=== PATIENT | male | born 1935 | race Caucasian/White ===

== ENCOUNTER 2017-09-11 10:06 | Emergency (ER) | payer MEDICARE, OTHER ==
[2017-09-11 10:42] LABS: ADD MAN DIFF? NO
[2017-09-11 10:57] LABS: WHITE BLOOD COUNT 10.3 10^3/ul (4.8-10.8)
[2017-09-11 10:57] LABS: BASOPHIL # 0.1 10^3/ul (0.0-0.1); BASOPHILS % 0.5 % (0.0-2.0); EOSINOPHILS # 0.4 10^3/ul (0.0-0.5); EOSINOPHILS % 4.3 % (0.0-7.0); HEMATOCRIT 40.2 % (42.0-52.0); HEMOGLOBIN 13.4 g/dl (14.0-18.0); LYMPHOCYTES # 1.9 10^3/ul (0.8-2.9); LYMPHOCYTES % 18.1 % (15.0-51.0); MEAN CORPUSCULAR HEMOGLOBIN 30.3 pg (29.0-33.0); MEAN CORPUSCULAR HGB CONC 33.3 g/dl (32.0-37.0); MEAN PLATELET VOLUME 11.2 fl (7.4-10.4); MONOCYTE # 0.8 10^3/ul (0.3-0.9); MONOCYTES % 7.9 % (0.0-11.0); NEUTROPHIL # 7.1 10^3/ul (1.6-7.5); NEUTROPHILS % 68.9 % (39.0-77.0); PLATELET COUNT 205 10^3/UL (140-415); POSITIVE DIFF @See below; RED BLOOD COUNT 4.42 10^6/ul (4.70-6.10); RED CELL DISTRIBUTION WIDTH 14.2 % (11.5-14.5)
[2017-09-11 11:15] LABS: HEMOGLOBIN A1C 6.6 % (0-5.9)
[2017-09-11 11:38] LABS: AMMONIA < 9 umol/l (9-30)
[2017-09-11 11:59] LABS: ALANINE AMINOTRANSFERASE 27 IU/L (13-69); ALBUMIN 3.9 g/dl (3.3-4.9); ALBUMIN/GLOBULIN RATIO 1.08; ALKALINE PHOSPHATASE 128 IU/L (42-121); ANION GAP 15 (8-16); ASPARTATE AMINO TRANSFERASE 17 IU/L (15-46); BILIRUBIN,INDIRECT 0.2 mg/dl (0-1.1); BILIRUBIN,TOTAL 0.2 mg/dl (0.2-1.3); BLOOD UREA NITROGEN 50 mg/dl (7-20); CALCIUM 8.7 mg/dl (8.4-10.2); CARBON DIOXIDE 24 mmol/L (21-31); CHLORIDE 106 mmol/L (97-110); CREATININE 3.24 mg/dl (0.61-1.24); GLUCOSE 192 mg/dl (70-220); POTASSIUM 4.6 mmol/L (3.5-5.1); SODIUM 140 mmol/L (135-144); TOTAL PROTEIN 7.5 g/dl (6.1-8.1)
[2017-09-11] MEDS: ASPIRIN 300 MG SUPP PR (12:01)
[2017-09-11 12:07] LABS: ACETAMINOPHEN < 10.0 ug/ml (10.0-30.0); ETHANOL < 10.0 mg/dl; SALICYLATE < 1.0 mg/dl (5.0-30.0)
[2017-09-11 12:10] LABS: TROPONIN-I 0.014 ng/ml (0.00-0.12)
== END 2017-09-11 16:16 | disposition short-term general hospital (02) ==
LOC: E/R 10:06
DX: I63.512 Cerebral infarction due to unspecified occlusion or stenosis of left middle cerebral artery (principal); I69.322 Dysarthria following cerebral infarction; H51.8 Other specified disorders of binocular movement; I63.9 Cerebral infarction, unspecified; E11.22 Type 2 diabetes mellitus with diabetic chronic kidney disease; N18.9 Chronic kidney disease, unspecified; I25.10 Atherosclerotic heart disease of native coronary artery without angina pectoris; Z98.61 Coronary angioplasty status; Z79.4 Long term (current) use of insulin
CPT/HCPCS: 36415; 70450; 71045; 80053; 80306; 82140; 83036; 84484; 85025; 93005; 99285-25

== ENCOUNTER 2018-01-26 04:08 | Emergency (ER) | payer MEDICARE, OTHER ==
[2018-01-26 06:58] LABS: ADD MAN DIFF? NO
[2018-01-26 07:04] LABS: BASOPHIL # 0.1 10^3/ul (0.0-0.1); BASOPHILS % 0.7 % (0.0-2.0); EOSINOPHILS # 0.7 10^3/ul (0.0-0.5); EOSINOPHILS % 7.1 % (0.0-7.0); HEMOGLOBIN 11.7 g/dl (14.0-18.0); LYMPHOCYTES # 1.9 10^3/ul (0.8-2.9); LYMPHOCYTES % 20.5 % (15.0-51.0); MEAN CORPUSCULAR HEMOGLOBIN 30.8 pg (29.0-33.0); MEAN CORPUSCULAR HGB CONC 31.6 g/dl (32.0-37.0); MEAN CORPUSCULAR VOLUME 97.4 fl (82.0-101.0); MEAN PLATELET VOLUME 11.7 fl (7.4-10.4); MONOCYTE # 0.9 10^3/ul (0.3-0.9); MONOCYTES % 9.4 % (0.0-11.0); NEUTROPHIL # 5.7 10^3/ul (1.6-7.5); NEUTROPHILS % 62.1 % (39.0-77.0); PLATELET COUNT 215 10^3/UL (140-415)
[2018-01-26 07:04] LABS: WHITE BLOOD COUNT 9.2 10^3/ul (4.8-10.8)
[2018-01-26 07:08] LABS: ADD UMIC YES; UR ASCORBIC ACID NEGATIVE (NEGATIVE); UR BILIRUBIN (Dip) NEGATIVE (NEGATIVE); UR BLOOD (Dip) 1+ mg/dL (NEGATIVE); UR CLARITY CLEAR (CLEAR); UR COLOR YELLOW (YELLOW); UR GLUCOSE (Dip) 2+ mg/dL (NEGATIVE); UR KETONES (Dip) NEGATIVE (NEGATIVE); UR LEUKOCYTE ESTERASE (Dip) NEGATIVE Leu/ul (NEGATIVE); UR NITRITE (Dip) NEGATIVE (NEGATIVE); UR RBC 1 /HPF (0-5); UR SPECIFIC GRAVITY (Dip) 1.015 (1.003-1.030); UR TOTAL PROTEIN (Dip) 3+ mg/dl (NEGATIVE); UR UROBILINOGEN (Dip) NEGATIVE (NEGATIVE); UR WBC 1 /HPF (0-5)
[2018-01-26 07:29] LABS: ALANINE AMINOTRANSFERASE 19 IU/L (13-69); ALBUMIN 3.4 g/dl (3.3-4.9); ALBUMIN/GLOBULIN RATIO 0.89; ALKALINE PHOSPHATASE 115 IU/L (42-121); ANION GAP 15 (8-16); ASPARTATE AMINO TRANSFERASE 13 IU/L (15-46); BILIRUBIN,INDIRECT 0.3 mg/dl (0-1.1); BILIRUBIN,TOTAL 0.3 mg/dl (0.2-1.3); BLOOD UREA NITROGEN 47 mg/dl (7-20); CALCIUM 8.6 mg/dl (8.4-10.2); CARBON DIOXIDE 27 mmol/L (21-31); CHLORIDE 113 mmol/L (97-110); CREATININE 4.03 mg/dl (0.61-1.24); GLUCOSE 155 mg/dl (70-220); LIPASE 276 U/L (23-300); POTASSIUM 4.8 mmol/L (3.5-5.1); SODIUM 150 mmol/L (135-144); TOTAL PROTEIN 7.2 g/dl (6.1-8.1)
[2018-01-26 07:41] LABS: TROPONIN-I 0.083 ng/ml (0.000-0.120)
== END 2018-01-26 08:27 | disposition home or self-care (01) ==
LOC: E/R 04:08
DX: R10.13 Epigastric pain (principal); E11.22 Type 2 diabetes mellitus with diabetic chronic kidney disease; N18.9 Chronic kidney disease, unspecified; I25.10 Atherosclerotic heart disease of native coronary artery without angina pectoris; Z79.4 Long term (current) use of insulin; Z87.891 Personal history of nicotine dependence; Z95.1 Presence of aortocoronary bypass graft
CPT/HCPCS: 36415; 74176; 80053; 81001; 83690; 84484; 85025; 99285-25

== ENCOUNTER 2018-03-22 16:54 | Inpatient (IN) | payer MEDICARE, OTHER ==
[2018-03-22] MEDS: INSULIN GLARGINE [LANTus] (100 UNITS/ML) SYG SC (00:50)
[2018-03-22] MEDS ORDERED: ACETAMINOPHEN 325 MG TAB PO (21:00)
[2018-03-22] MEDS ORDERED: MAGNESIUM HYDROXIDE 30ML CUP PO (21:00)
[2018-03-22] MEDS: INSULIN ASPART [NOVOLOG] 3 ML PEN SC (21:00)
[2018-03-22] MEDS ORDERED: ALBUTEROL HFA 8 GM INHALER INH (21:00)
[2018-03-22] MEDS: ISOSORBIDE DINITRATE 20 MG TAB PO (21:00)
[2018-03-22] MEDS ORDERED: ZOLPIDEM 5 MG TAB PO (21:00)
[2018-03-22] MEDS ORDERED: BENZONATATE 100 MG CAP PO (21:00)
[2018-03-22 21:02] LABS: ADD MAN DIFF? NO
[2018-03-22 21:04] LABS: WHITE BLOOD COUNT 7.4 10^3/ul (4.8-10.8)
[2018-03-22 21:04] LABS: BASOPHIL # 0.1 10^3/ul (0.0-0.1); BASOPHILS % 0.8 % (0.0-2.0); EOSINOPHILS # 0.7 10^3/ul (0.0-0.5); EOSINOPHILS % 8.7 % (0.0-7.0); HEMATOCRIT 31.1 % (42.0-52.0); LYMPHOCYTES # 1.7 10^3/ul (0.8-2.9); LYMPHOCYTES % 22.6 % (15.0-51.0); MEAN CORPUSCULAR HEMOGLOBIN 30.5 pg (29.0-33.0); MEAN CORPUSCULAR HGB CONC 32.2 g/dl (32.0-37.0); MEAN CORPUSCULAR VOLUME 94.8 fl (82.0-101.0); MEAN PLATELET VOLUME 11.4 fl (7.4-10.4); MONOCYTE # 0.9 10^3/ul (0.3-0.9); MONOCYTES % 12.5 % (0.0-11.0); NEUTROPHIL # 4.1 10^3/ul (1.6-7.5); NEUTROPHILS % 55.1 % (39.0-77.0); PLATELET COUNT 177 10^3/UL (140-415); RED BLOOD COUNT 3.28 10^6/ul (4.70-6.10)
[2018-03-22 21:17] LABS: HEMOGLOBIN A1C 7.5 % (0-5.9)
[2018-03-22 21:23] LABS: BILIRUBIN,TOTAL 0.3 mg/dl (0.2-1.3)
[2018-03-22 21:24] LABS: ALANINE AMINOTRANSFERASE 25 IU/L (13-69); ALBUMIN 3.4 g/dl (3.3-4.9); ALBUMIN/GLOBULIN RATIO 0.91; ALKALINE PHOSPHATASE 113 IU/L (42-121); ANION GAP 13 (8-16); ASPARTATE AMINO TRANSFERASE 17 IU/L (15-46); BILIRUBIN,INDIRECT 0.4 mg/dl (0-1.1); BILIRUBIN,TOTAL 0.4 mg/dl (0.2-1.3); BLOOD UREA NITROGEN 73 mg/dl (7-20); CALCIUM 8.5 mg/dl (8.4-10.2); CARBON DIOXIDE 25 mmol/L (21-31); CHLORIDE 108 mmol/L (97-110); CREATININE 4.58 mg/dl (0.61-1.24); GLUCOSE 127 mg/dl (70-220); POTASSIUM 4.5 mmol/L (3.5-5.1); SODIUM 141 mmol/L (135-144); TOTAL PROTEIN 7.1 g/dl (6.1-8.1)
[2018-03-22 21:26] LABS: ALANINE AMINOTRANSFERASE 28 IU/L (13-69); ALBUMIN 3.1 g/dl (3.3-4.9); ALKALINE PHOSPHATASE 111 IU/L (42-121); ASPARTATE AMINO TRANSFERASE 17 IU/L (15-46); BILIRUBIN,INDIRECT 0.3 mg/dl (0-1.1); TOTAL PROTEIN 6.5 g/dl (6.1-8.1)
[2018-03-22 21:39] LABS: PROTIME 22.4 Sec (11.9-14.9)
[2018-03-22] MEDS ORDERED: DEXTROSE 50% 50 ML SYRINGE IV ×2 (22:00)
[2018-03-22] MEDS ORDERED: GLUCOSE GEL 15 GRAM TUBE PO ×2 (22:00)
[2018-03-22] MEDS ORDERED: GLUCOSE GEL 15 GRAM TUBE BUCCAL (22:00)
[2018-03-22] MEDS ORDERED: GLUCAGON 1 MG INJ IM (22:00)
[2018-03-22] MEDS: LEVOFLOXACIN 750 MG TABLET PO (22:18)
[2018-03-22] MEDS: DOXYCYCLINE 100 MG TAB PO (22:18)
[2018-03-22] MEDS: DOCUSATE SODIUM 100 MG CAP PO (22:19)
[2018-03-22] MEDS: ATORVASTATIN 80 MG TAB PO (22:19)
[2018-03-22] MEDS: TAMSULOSIN (SR) 0.4 MG CAP PO (22:20)
[2018-03-22 22:23] LABS: ERYTHROCYTE SEDIMENTATION RATE 105 mm/Hr (0-20)
[2018-03-22 22:41] LABS: 50/50 PROTIME CONCLUSION NOT CORRECTED; 50/50 PT IMMED 15.1 Sec
[2018-03-23] MEDS: INSULIN ASPART [NOVOLOG] 3 ML PEN SC ×4 (08:00→21:00)
[2018-03-23] MEDS: DOCUSATE SODIUM 100 MG CAP PO ×2 (08:26→20:50)
[2018-03-23] MEDS: DOXYCYCLINE 100 MG TAB PO ×2 (08:26→20:50)
[2018-03-23] MEDS: FUROSEMIDE 20 MG TAB PO (08:29)
[2018-03-23] MEDS: ASPIRIN 81 MG TAB PO (08:29)
[2018-03-23] MEDS: FAMOTIDINE 20 MG TAB PO (08:29)
[2018-03-23 08:45] LABS: ADD UMIC YES; UR ASCORBIC ACID NEGATIVE (NEGATIVE); UR BILIRUBIN (Dip) NEGATIVE (NEGATIVE); UR BLOOD (Dip) NEGATIVE (NEGATIVE); UR CLARITY CLEAR (CLEAR); UR COLOR YELLOW (YELLOW); UR GLUCOSE (Dip) 1+ mg/dL (NEGATIVE); UR KETONES (Dip) NEGATIVE (NEGATIVE); UR LEUKOCYTE ESTERASE (Dip) NEGATIVE Leu/ul (NEGATIVE); UR NITRITE (Dip) NEGATIVE (NEGATIVE); UR RBC 1 /HPF (0-5); UR SPECIFIC GRAVITY (Dip) 1.014 (1.003-1.030); UR TOTAL PROTEIN (Dip) 2+ mg/dl (NEGATIVE); UR UROBILINOGEN (Dip) NEGATIVE (NEGATIVE); UR WBC 1 /HPF (0-5)
[2018-03-23 14:07] LABS: PROTIME 21.3 Sec (11.9-14.9); PT RATIO 1.7
[2018-03-23] MEDS: WARFARIN 3 MG TAB PO (17:27)
[2018-03-23] MEDS ORDERED: ONDANSETRON 4 MG INJ IV (18:30)
[2018-03-23] MEDS: ATORVASTATIN 80 MG TAB PO (20:50)
[2018-03-23] MEDS: TAMSULOSIN (SR) 0.4 MG CAP PO (20:50)
[2018-03-23] MEDS: INSULIN GLARGINE [LANTus] (100 UNITS/ML) SYG SC (20:59)
[2018-03-24] MEDS: LEVALBUTEROL (NEB) 0.63 MG/3 ML AMP HHN ×3 (00:52→15:47)
[2018-03-24] MEDS: LEVOFLOXACIN 500MG/D5W (PMX) 100 ML IVPB (01:02)
[2018-03-24 07:15] LABS: ADD MAN DIFF? NO
[2018-03-24 07:23] LABS: BASOPHILS % 0.5 % (0.0-2.0); EOSINOPHILS # 0.4 10^3/ul (0.0-0.5); EOSINOPHILS % 5.9 % (0.0-7.0); HEMATOCRIT 33.6 % (42.0-52.0); HEMOGLOBIN 10.8 g/dl (14.0-18.0); LYMPHOCYTES # 1.6 10^3/ul (0.8-2.9); LYMPHOCYTES % 21.3 % (15.0-51.0); MEAN CORPUSCULAR HEMOGLOBIN 30.5 pg (29.0-33.0); MEAN CORPUSCULAR HGB CONC 32.1 g/dl (32.0-37.0); MEAN CORPUSCULAR VOLUME 94.9 fl (82.0-101.0); MEAN PLATELET VOLUME 11.6 fl (7.4-10.4); MONOCYTE # 0.9 10^3/ul (0.3-0.9); MONOCYTES % 12.6 % (0.0-11.0); NEUTROPHIL # 4.3 10^3/ul (1.6-7.5); NEUTROPHILS % 59.4 % (39.0-77.0); PLATELET COUNT 199 10^3/UL (140-415); RED BLOOD COUNT 3.54 10^6/ul (4.70-6.10); RED CELL DISTRIBUTION WIDTH 14.8 % (11.5-14.5)
[2018-03-24 07:23] LABS: WHITE BLOOD COUNT 7.3 10^3/ul (4.8-10.8)
[2018-03-24 07:54] LABS: ALANINE AMINOTRANSFERASE 21 IU/L (13-69); ALBUMIN 3.2 g/dl (3.3-4.9); ALBUMIN/GLOBULIN RATIO 0.94; ALKALINE PHOSPHATASE 98 IU/L (42-121); ANION GAP 13 (8-16); ASPARTATE AMINO TRANSFERASE 15 IU/L (15-46); BILIRUBIN,INDIRECT 0.4 mg/dl (0-1.1); BILIRUBIN,TOTAL 0.4 mg/dl (0.2-1.3); BLOOD UREA NITROGEN 73 mg/dl (7-20); CALCIUM 8.7 mg/dl (8.4-10.2); CARBON DIOXIDE 24 mmol/L (21-31); CHLORIDE 109 mmol/L (97-110); CREATININE 4.17 mg/dl (0.61-1.24); GLUCOSE 110 mg/dl (70-220); POTASSIUM 4.6 mmol/L (3.5-5.1); SODIUM 141 mmol/L (135-144); TOTAL PROTEIN 6.6 g/dl (6.1-8.1)
[2018-03-24 07:55] LABS: TROPONIN-I 0.045 ng/ml (0.000-0.120)
[2018-03-24] MEDS: INSULIN ASPART [NOVOLOG] 3 ML PEN SC ×4 (08:00→22:16)
[2018-03-24] MEDS: FAMOTIDINE 20 MG TAB PO (08:48)
[2018-03-24] MEDS: DOXYCYCLINE 100 MG TAB PO ×2 (08:48→22:01)
[2018-03-24] MEDS: FUROSEMIDE 20 MG TAB PO (08:49)
[2018-03-24] MEDS: ASPIRIN 81 MG TAB PO (08:49)
[2018-03-24] MEDS: DOCUSATE SODIUM 100 MG CAP PO ×2 (08:49→22:02)
[2018-03-24] MEDS ORDERED: LACTULOSE 30ML CUP PO (16:00)
[2018-03-24 16:22] LABS: B-TYPE NATRIURETIC PEPTIDE 23700 PG/ML (0-450)
[2018-03-24] MEDS ORDERED: FUROSEMIDE 20 MG INJ (16:24)
[2018-03-24] MEDS ORDERED: FUROSEMIDE 40 MG INJ (16:26)
[2018-03-24] MEDS: WARFARIN 3 MG TAB PO (17:01)
[2018-03-24] MEDS: FUROSEMIDE 40 MG INJ IV (17:01)
[2018-03-24] MEDS: LEVOFLOXACIN 250 MG TAB PO (17:01)
[2018-03-24 19:42] LABS: CREATININE,URINE RANDOM 69.55 mg/dl (20-370)
[2018-03-24 19:51] LABS: PROTEIN/CREAT RATIO 5.06 RATIO
[2018-03-24] MEDS: ISOSORBIDE DINITRATE 10 MG TAB PO (22:02)
[2018-03-24] MEDS: TAMSULOSIN (SR) 0.4 MG CAP PO (22:02)
[2018-03-24] MEDS: ATORVASTATIN 80 MG TAB PO (22:02)
[2018-03-24] MEDS: INSULIN GLARGINE [LANTus] (100 UNITS/ML) SYG SC (22:52)
[2018-03-25] MEDS: LEVALBUTEROL (NEB) 0.63 MG/3 ML AMP HHN ×4 (00:17→23:17)
[2018-03-25 06:12] LABS: ADD MAN DIFF? NO
[2018-03-25 06:17] LABS: WHITE BLOOD COUNT 6.8 10^3/ul (4.8-10.8)
[2018-03-25 06:17] LABS: BASOPHIL # 0.1 10^3/ul (0.0-0.1); BASOPHILS % 0.7 % (0.0-2.0); EOSINOPHILS # 0.5 10^3/ul (0.0-0.5); EOSINOPHILS % 6.9 % (0.0-7.0); HEMOGLOBIN 10.1 g/dl (14.0-18.0); LYMPHOCYTES # 1.4 10^3/ul (0.8-2.9); LYMPHOCYTES % 20.9 % (15.0-51.0); MEAN CORPUSCULAR HGB CONC 32.6 g/dl (32.0-37.0); MEAN CORPUSCULAR VOLUME 95.1 fl (82.0-101.0); MEAN PLATELET VOLUME 11.4 fl (7.4-10.4); MONOCYTE # 0.9 10^3/ul (0.3-0.9); MONOCYTES % 13.6 % (0.0-11.0); NEUTROPHIL # 3.9 10^3/ul (1.6-7.5); NEUTROPHILS % 57.6 % (39.0-77.0); PLATELET COUNT 188 10^3/UL (140-415); RED BLOOD COUNT 3.26 10^6/ul (4.70-6.10); RED CELL DISTRIBUTION WIDTH 14.7 % (11.5-14.5)
[2018-03-25] MEDS: FUROSEMIDE 40 MG INJ IV ×2 (06:31→17:35)
[2018-03-25 06:38] LABS: INR 2.08; PROTIME 23.9 Sec (11.9-14.9); PT RATIO 1.9
[2018-03-25 06:45] LABS: CHOL/HDL RATIO 4.3 RATIO; HDL CHOLESTEROL 28 mg/dl (31-75); LDL CHOLESTEROL,CALCULATED 72 mg/dl; TRIGLYCERIDES 115 mg/dl (0-149)
[2018-03-25 06:45] LABS: CHOLESTEROL 123 mg/dl (100-200)
[2018-03-25 06:46] LABS: ALANINE AMINOTRANSFERASE 22 IU/L (13-69); ALBUMIN 2.9 g/dl (3.3-4.9); ALBUMIN/GLOBULIN RATIO 0.87; ALKALINE PHOSPHATASE 88 IU/L (42-121); ANION GAP 13 (8-16); ASPARTATE AMINO TRANSFERASE 16 IU/L (15-46); BILIRUBIN,INDIRECT 0.2 mg/dl (0-1.1); BILIRUBIN,TOTAL 0.2 mg/dl (0.2-1.3); BLOOD UREA NITROGEN 77 mg/dl (7-20); CALCIUM 8.6 mg/dl (8.4-10.2); CARBON DIOXIDE 25 mmol/L (21-31); CHLORIDE 108 mmol/L (97-110); CREATININE 4.45 mg/dl (0.61-1.24); GLUCOSE 76 mg/dl (70-220); POTASSIUM 4.5 mmol/L (3.5-5.1); SODIUM 141 mmol/L (135-144); TOTAL PROTEIN 6.2 g/dl (6.1-8.1)
[2018-03-25 06:47] LABS: B-TYPE NATRIURETIC PEPTIDE 24600 PG/ML (0-450)
[2018-03-25] MEDS: INSULIN ASPART [NOVOLOG] 3 ML PEN SC ×4 (08:00→20:24)
[2018-03-25 09:02] LABS: IRON 38 ug/dl (35-150)
[2018-03-25] MEDS: ASPIRIN 81 MG TAB PO (09:06)
[2018-03-25] MEDS: FAMOTIDINE 20 MG TAB PO (09:06)
[2018-03-25] MEDS: DOXYCYCLINE 100 MG TAB PO ×2 (09:06→20:14)
[2018-03-25] MEDS: DOCUSATE SODIUM 100 MG CAP PO ×2 (09:07→20:14)
[2018-03-25 09:12] LABS: % IRON SATURATION 20 % SAT (22-52); TOTAL IRON BINDING CAPACITY 190 ug/dl (241-421)
[2018-03-25] MEDS: ISOSORBIDE DINITRATE 10 MG TAB PO ×2 (09:50→20:15)
[2018-03-25] MEDS: WARFARIN 3 MG TAB PO (16:59)
[2018-03-25] MEDS: EPOETIN 10000 UNITS/1 ML INJ (ESRD) SC (17:00)
[2018-03-25] MEDS: ATORVASTATIN 80 MG TAB PO (20:14)
[2018-03-25] MEDS: TAMSULOSIN (SR) 0.4 MG CAP PO (20:14)
[2018-03-25] MEDS: INSULIN GLARGINE [LANTus] (100 UNITS/ML) SYG SC (20:25)
[2018-03-26] MEDS ORDERED: LEVOFLOXACIN 250MG/D5W (PMX) 50 ML IVPB (01:00)
[2018-03-26] MEDS: FUROSEMIDE 40 MG INJ IV ×2 (05:51→17:17)
[2018-03-26 06:49] LABS: ADD MAN DIFF? NO
[2018-03-26 06:55] LABS: BASOPHILS % 0.5 % (0.0-2.0); EOSINOPHILS # 0.5 10^3/ul (0.0-0.5); EOSINOPHILS % 7.1 % (0.0-7.0); HEMATOCRIT 31.2 % (42.0-52.0); HEMOGLOBIN 10.1 g/dl (14.0-18.0); LYMPHOCYTES # 1.7 10^3/ul (0.8-2.9); LYMPHOCYTES % 22.6 % (15.0-51.0); MEAN CORPUSCULAR HEMOGLOBIN 30.2 pg (29.0-33.0); MEAN CORPUSCULAR HGB CONC 32.4 g/dl (32.0-37.0); MEAN CORPUSCULAR VOLUME 93.4 fl (82.0-101.0); MEAN PLATELET VOLUME 11.5 fl (7.4-10.4); MONOCYTE # 0.9 10^3/ul (0.3-0.9); MONOCYTES % 11.9 % (0.0-11.0); NEUTROPHIL # 4.4 10^3/ul (1.6-7.5); NEUTROPHILS % 57.6 % (39.0-77.0); PLATELET COUNT 204 10^3/UL (140-415); RED BLOOD COUNT 3.34 10^6/ul (4.70-6.10); RED CELL DISTRIBUTION WIDTH 14.6 % (11.5-14.5)
[2018-03-26 06:55] LABS: WHITE BLOOD COUNT 7.6 10^3/ul (4.8-10.8)
[2018-03-26 07:53] LABS: ALANINE AMINOTRANSFERASE 20 IU/L (13-69); ALBUMIN 3.2 g/dl (3.3-4.9); ALBUMIN/GLOBULIN RATIO 0.86; ALKALINE PHOSPHATASE 90 IU/L (42-121); ANION GAP 14 (8-16); ASPARTATE AMINO TRANSFERASE 20 IU/L (15-46); BILIRUBIN,INDIRECT 0.1 mg/dl (0-1.1); BILIRUBIN,TOTAL 0.1 mg/dl (0.2-1.3); BLOOD UREA NITROGEN 88 mg/dl (7-20); CALCIUM 8.5 mg/dl (8.4-10.2); CARBON DIOXIDE 23 mmol/L (21-31); CHLORIDE 108 mmol/L (97-110); CREATININE 5.11 mg/dl (0.61-1.24); GLUCOSE 75 mg/dl (70-220); SODIUM 141 mmol/L (135-144); TOTAL PROTEIN 6.9 g/dl (6.1-8.1)
[2018-03-26] MEDS: INSULIN ASPART [NOVOLOG] 3 ML PEN SC ×4 (08:00→20:13)
[2018-03-26] MEDS: LEVALBUTEROL (NEB) 0.63 MG/3 ML AMP HHN ×3 (08:00→23:32)
[2018-03-26 08:29] LABS: MAGNESIUM 1.9 mg/dl (1.7-2.5)
[2018-03-26] MEDS: ASPIRIN 81 MG TAB PO (08:35)
[2018-03-26] MEDS: DOXYCYCLINE 100 MG TAB PO ×2 (08:35→20:12)
[2018-03-26] MEDS: ISOSORBIDE DINITRATE 10 MG TAB PO ×2 (08:35→20:12)
[2018-03-26] MEDS: FAMOTIDINE 20 MG TAB PO (08:36)
[2018-03-26] MEDS: DOCUSATE SODIUM 100 MG CAP PO ×2 (08:36→20:12)
[2018-03-26] MEDS: LEVOFLOXACIN 250 MG TAB PO (17:17)
[2018-03-26] MEDS: TAMSULOSIN (SR) 0.4 MG CAP PO (20:11)
[2018-03-26] MEDS: ATORVASTATIN 80 MG TAB PO (20:12)
[2018-03-26] MEDS: INSULIN GLARGINE [LANTus] (100 UNITS/ML) SYG SC (20:21)
[2018-03-27] MEDS: FUROSEMIDE 40 MG INJ IV ×2 (06:08→17:12)
[2018-03-27 06:38] LABS: ADD MAN DIFF? NO
[2018-03-27 06:49] LABS: WHITE BLOOD COUNT 7.6 10^3/ul (4.8-10.8)
[2018-03-27 06:49] LABS: BASOPHIL # 0.1 10^3/ul (0.0-0.1); BASOPHILS % 0.8 % (0.0-2.0); EOSINOPHILS # 0.4 10^3/ul (0.0-0.5); EOSINOPHILS % 5.8 % (0.0-7.0); HEMATOCRIT 31.8 % (42.0-52.0); HEMOGLOBIN 10.4 g/dl (14.0-18.0); LYMPHOCYTES # 1.8 10^3/ul (0.8-2.9); LYMPHOCYTES % 23.8 % (15.0-51.0); MEAN CORPUSCULAR HEMOGLOBIN 30.6 pg (29.0-33.0); MEAN CORPUSCULAR HGB CONC 32.7 g/dl (32.0-37.0); MEAN CORPUSCULAR VOLUME 93.5 fl (82.0-101.0); MEAN PLATELET VOLUME 11.8 fl (7.4-10.4); MONOCYTES % 12.6 % (0.0-11.0); NEUTROPHIL # 4.3 10^3/ul (1.6-7.5); NEUTROPHILS % 56.6 % (39.0-77.0); PLATELET COUNT 205 10^3/UL (140-415); RED CELL DISTRIBUTION WIDTH 14.8 % (11.5-14.5)
[2018-03-27 06:57] LABS: INR 2.54; PT RATIO 2.2
[2018-03-27 07:41] LABS: ALANINE AMINOTRANSFERASE 24 IU/L (13-69); ALBUMIN 3.4 g/dl (3.3-4.9); ALBUMIN/GLOBULIN RATIO 0.91; ALKALINE PHOSPHATASE 103 IU/L (42-121); ANION GAP 15 (8-16); ASPARTATE AMINO TRANSFERASE 24 IU/L (15-46); BILIRUBIN,INDIRECT 0.2 mg/dl (0-1.1); BILIRUBIN,TOTAL 0.2 mg/dl (0.2-1.3); BLOOD UREA NITROGEN 94 mg/dl (7-20); CALCIUM 8.6 mg/dl (8.4-10.2); CARBON DIOXIDE 25 mmol/L (21-31); CHLORIDE 106 mmol/L (97-110); CREATININE 4.75 mg/dl (0.61-1.24); POTASSIUM 3.9 mmol/L (3.5-5.1); SODIUM 142 mmol/L (135-144); TOTAL PROTEIN 7.1 g/dl (6.1-8.1)
[2018-03-27 07:46] LABS: GLUCOSE 48 mg/dl (70-220)
[2018-03-27] MEDS: LEVALBUTEROL (NEB) 0.63 MG/3 ML AMP HHN ×2 (07:55→16:00)
[2018-03-27] MEDS: INSULIN ASPART [NOVOLOG] 3 ML PEN SC ×4 (08:00→20:13)
[2018-03-27] MEDS: ASPIRIN 81 MG TAB PO (08:35)
[2018-03-27] MEDS: FAMOTIDINE 20 MG TAB PO (08:35)
[2018-03-27] MEDS: DOCUSATE SODIUM 100 MG CAP PO ×2 (08:35→20:12)
[2018-03-27] MEDS: DOXYCYCLINE 100 MG TAB PO (08:35)
[2018-03-27] MEDS: ISOSORBIDE DINITRATE 10 MG TAB PO ×2 (08:36→20:12)
[2018-03-27] MEDS ORDERED: INSULIN GLARGINE [LANTus] (100 UNITS/ML) SYG SC ×2 (20:00)
[2018-03-27] MEDS: ATORVASTATIN 80 MG TAB PO (20:12)
[2018-03-27] MEDS: TAMSULOSIN (SR) 0.4 MG CAP PO (20:12)
[2018-03-27] MEDS: INSULIN GLARGINE [LANTus] (100 UNITS/ML) SYG SC (20:19)
[2018-03-28] MEDS: LEVALBUTEROL (NEB) 0.63 MG/3 ML AMP HHN ×3 (00:40→17:56)
[2018-03-28] MEDS: FUROSEMIDE 40 MG INJ IV ×2 (05:45→17:12)
[2018-03-28 06:44] LABS: B-TYPE NATRIURETIC PEPTIDE 13500 PG/ML (0-450)
[2018-03-28 06:53] LABS: ANION GAP 15 (8-16); BLOOD UREA NITROGEN 101 mg/dl (7-20); CALCIUM 8.6 mg/dl (8.4-10.2); CARBON DIOXIDE 23 mmol/L (21-31); CHLORIDE 106 mmol/L (97-110); CREATININE 4.74 mg/dl (0.61-1.24); GLUCOSE 84 mg/dl (70-220); SODIUM 140 mmol/L (135-144)
[2018-03-28] MEDS: INSULIN ASPART [NOVOLOG] 3 ML PEN SC ×4 (08:00→20:54)
[2018-03-28] MEDS ORDERED: FUROSEMIDE 40 MG INJ IV (09:00)
[2018-03-28] MEDS: FAMOTIDINE 20 MG TAB PO (09:13)
[2018-03-28] MEDS: ISOSORBIDE DINITRATE 10 MG TAB PO ×2 (09:14→20:54)
[2018-03-28] MEDS: ASPIRIN 81 MG TAB PO (09:14)
[2018-03-28] MEDS: DOCUSATE SODIUM 100 MG CAP PO ×2 (09:14→20:53)
[2018-03-28] MEDS: EPOETIN 10000 UNITS/1 ML INJ (ESRD) SC (17:13)
[2018-03-28] MEDS: INSULIN GLARGINE [LANTus] (100 UNITS/ML) SYG SC (20:53)
[2018-03-28] MEDS: TAMSULOSIN (SR) 0.4 MG CAP PO (20:54)
[2018-03-28] MEDS: ATORVASTATIN 80 MG TAB PO (20:54)
[2018-03-29] MEDS: LEVALBUTEROL (NEB) 0.63 MG/3 ML AMP HHN ×4 (00:13→23:06)
[2018-03-29 06:06] LABS: ADD MAN DIFF? NO
[2018-03-29 06:17] LABS: WHITE BLOOD COUNT 7.7 10^3/ul (4.8-10.8)
[2018-03-29 06:17] LABS: BASOPHIL # 0.1 10^3/ul (0.0-0.1); BASOPHILS % 0.9 % (0.0-2.0); EOSINOPHILS # 0.6 10^3/ul (0.0-0.5); EOSINOPHILS % 7.4 % (0.0-7.0); HEMATOCRIT 34.1 % (42.0-52.0); HEMOGLOBIN 11.1 g/dl (14.0-18.0); LYMPHOCYTES # 1.7 10^3/ul (0.8-2.9); LYMPHOCYTES % 22.1 % (15.0-51.0); MEAN CORPUSCULAR HEMOGLOBIN 30.6 pg (29.0-33.0); MEAN CORPUSCULAR HGB CONC 32.6 g/dl (32.0-37.0); MEAN CORPUSCULAR VOLUME 93.9 fl (82.0-101.0); MEAN PLATELET VOLUME 11.5 fl (7.4-10.4); MONOCYTES % 13.4 % (0.0-11.0); NEUTROPHIL # 4.3 10^3/ul (1.6-7.5); NEUTROPHILS % 55.9 % (39.0-77.0); PLATELET COUNT 228 10^3/UL (140-415); RED BLOOD COUNT 3.63 10^6/ul (4.70-6.10); RED CELL DISTRIBUTION WIDTH 14.7 % (11.5-14.5)
[2018-03-29] MEDS: FUROSEMIDE 40 MG INJ IV (06:18)
[2018-03-29 06:38] LABS: PROTIME 26.8 Sec (11.9-14.9); PT RATIO 2.1
[2018-03-29 07:47] LABS: ALANINE AMINOTRANSFERASE 25 IU/L (13-69); ALBUMIN 3.4 g/dl (3.3-4.9); ALBUMIN/GLOBULIN RATIO 0.87; ALKALINE PHOSPHATASE 111 IU/L (42-121); ANION GAP 15 (8-16); ASPARTATE AMINO TRANSFERASE 26 IU/L (15-46); BILIRUBIN,INDIRECT 0.2 mg/dl (0-1.1); BILIRUBIN,TOTAL 0.2 mg/dl (0.2-1.3); BLOOD UREA NITROGEN 105 mg/dl (7-20); CALCIUM 8.6 mg/dl (8.4-10.2); CARBON DIOXIDE 25 mmol/L (21-31); CHLORIDE 105 mmol/L (97-110); CREATININE 4.85 mg/dl (0.61-1.24); GLUCOSE 133 mg/dl (70-220); POTASSIUM 4.3 mmol/L (3.5-5.1); SODIUM 141 mmol/L (135-144); TOTAL PROTEIN 7.3 g/dl (6.1-8.1)
[2018-03-29] MEDS: INSULIN ASPART [NOVOLOG] 3 ML PEN SC ×4 (08:00→21:00)
[2018-03-29] MEDS: FAMOTIDINE 20 MG TAB PO (08:13)
[2018-03-29] MEDS: DOCUSATE SODIUM 100 MG CAP PO ×2 (08:13→20:16)
[2018-03-29] MEDS: ISOSORBIDE DINITRATE 10 MG TAB PO ×2 (08:13→20:18)
[2018-03-29] MEDS: ASPIRIN 81 MG TAB PO (08:13)
[2018-03-29] MEDS: PHYTONADIONE (1 MG/ML PO SYG) PO (15:01)
[2018-03-29] MEDS: FUROSEMIDE 40 MG TAB PO (17:24)
[2018-03-29] MEDS: ATORVASTATIN 80 MG TAB PO (20:16)
[2018-03-29] MEDS: TAMSULOSIN (SR) 0.4 MG CAP PO (20:18)
[2018-03-29] MEDS: INSULIN GLARGINE [LANTus] (100 UNITS/ML) SYG SC (20:39)
[2018-03-30] MEDS: FUROSEMIDE 40 MG TAB PO ×2 (05:27→18:53)
[2018-03-30 05:50] LABS: ADD MAN DIFF? NO
[2018-03-30 06:04] LABS: BASOPHIL # 0.1 10^3/ul (0.0-0.1); BASOPHILS % 0.9 % (0.0-2.0); EOSINOPHILS # 0.5 10^3/ul (0.0-0.5); EOSINOPHILS % 6.4 % (0.0-7.0); HEMOGLOBIN 11.9 g/dl (14.0-18.0); LYMPHOCYTES # 1.6 10^3/ul (0.8-2.9); LYMPHOCYTES % 21.1 % (15.0-51.0); MEAN CORPUSCULAR HEMOGLOBIN 29.9 pg (29.0-33.0); MEAN CORPUSCULAR HGB CONC 32.2 g/dl (32.0-37.0); MEAN PLATELET VOLUME 11.1 fl (7.4-10.4); MONOCYTE # 1.1 10^3/ul (0.3-0.9); MONOCYTES % 13.9 % (0.0-11.0); NEUTROPHIL # 4.4 10^3/ul (1.6-7.5); NEUTROPHILS % 57.6 % (39.0-77.0); PLATELET COUNT 235 10^3/UL (140-415); RED BLOOD COUNT 3.98 10^6/ul (4.70-6.10); RED CELL DISTRIBUTION WIDTH 14.8 % (11.5-14.5)
[2018-03-30 06:04] LABS: WHITE BLOOD COUNT 7.6 10^3/ul (4.8-10.8)
[2018-03-30 06:17] LABS: INR 1.69; PROTIME 20.2 Sec (11.9-14.9); PT RATIO 1.6
[2018-03-30 06:48] LABS: ALANINE AMINOTRANSFERASE 30 IU/L (13-69); ALBUMIN 3.7 g/dl (3.3-4.9); ALBUMIN/GLOBULIN RATIO 0.92; ALKALINE PHOSPHATASE 120 IU/L (42-121); ANION GAP 14 (8-16); ASPARTATE AMINO TRANSFERASE 29 IU/L (15-46); BILIRUBIN,INDIRECT 0.1 mg/dl (0-1.1); BILIRUBIN,TOTAL 0.1 mg/dl (0.2-1.3); BLOOD UREA NITROGEN 110 mg/dl (7-20); CARBON DIOXIDE 24 mmol/L (21-31); CHLORIDE 107 mmol/L (97-110); GLUCOSE 128 mg/dl (70-220); POTASSIUM 3.9 mmol/L (3.5-5.1); SODIUM 141 mmol/L (135-144); TOTAL PROTEIN 7.7 g/dl (6.1-8.1)
[2018-03-30] MEDS: LEVALBUTEROL (NEB) 0.63 MG/3 ML AMP HHN ×2 (07:34→16:00)
[2018-03-30] MEDS: INSULIN ASPART [NOVOLOG] 3 ML PEN SC ×4 (07:53→20:00)
[2018-03-30 09:05] LABS: HAAIG REFLEX REFLEX FILED
[2018-03-30] MEDS: ASPIRIN 81 MG TAB PO (09:13)
[2018-03-30] MEDS: DOCUSATE SODIUM 100 MG CAP PO ×2 (09:13→20:01)
[2018-03-30] MEDS: ISOSORBIDE DINITRATE 10 MG TAB PO ×2 (09:13→20:43)
[2018-03-30] MEDS: FAMOTIDINE 20 MG TAB PO (09:13)
[2018-03-30 09:58] LABS: HEPATITIS B SURFACE ANTIGEN NEGATIVE (NEGATIVE)
[2018-03-30 10:16] LABS: HEPATITIS B CORE ANTIBODY NEGATIVE (NEGATIVE); HEPATITIS C VIRAL ANTIBODY NEGATIVE (NEGATIVE)
[2018-03-30] MEDS ORDERED: hydrALAzine 20 MG INJ (18:34)
[2018-03-30] MEDS ORDERED: IODIXANOL LOCM 100 ML BTL (18:35)
[2018-03-30] MEDS ORDERED: HEPARIN 1000 UNITS/NS (A-LINE) 1,000 ML (18:35)
[2018-03-30] MEDS ORDERED: LIDOCAINE 1% (MDV) 10 ML INJ (18:35)
[2018-03-30] MEDS ORDERED: HEPARIN 1000 UNITS/ML 10 ML INJ (18:35)
[2018-03-30] MEDS: ATORVASTATIN 80 MG TAB PO (20:01)
[2018-03-30] MEDS: TAMSULOSIN (SR) 0.4 MG CAP PO (20:01)
[2018-03-30] MEDS: INSULIN GLARGINE [LANTus] (100 UNITS/ML) SYG SC (20:13)
[2018-03-31] MEDS: LEVALBUTEROL (NEB) 0.63 MG/3 ML AMP HHN ×3 (00:44→16:37)
[2018-03-31] MEDS: FUROSEMIDE 40 MG TAB PO ×2 (05:41→18:31)
[2018-03-31] MEDS: INSULIN ASPART [NOVOLOG] 3 ML PEN SC ×4 (08:00→20:04)
[2018-03-31] MEDS: MANNITOL 25% 50 ML IV (11:14)
[2018-03-31] MEDS: HEPARIN 1000 UNITS/ML 10 ML INJ CATHETER (14:50)
[2018-03-31 15:50] LABS: ALANINE AMINOTRANSFERASE 35 IU/L (13-69); ALBUMIN 4.5 g/dl (3.3-4.9); ALKALINE PHOSPHATASE 182 IU/L (42-121); ANION GAP 16 (8-16); ASPARTATE AMINO TRANSFERASE 35 IU/L (15-46); BILIRUBIN,INDIRECT 0.4 mg/dl (0-1.1); BILIRUBIN,TOTAL 0.4 mg/dl (0.2-1.3); BLOOD UREA NITROGEN 39 mg/dl (7-20); CALCIUM 9.1 mg/dl (8.4-10.2); CARBON DIOXIDE 30 mmol/L (21-31); CHLORIDE 95 mmol/L (97-110); CREATININE 1.88 mg/dl (0.61-1.24); GLUCOSE 113 mg/dl (70-220); POTASSIUM 4.1 mmol/L (3.5-5.1); SODIUM 137 mmol/L (135-144); TOTAL PROTEIN 9.5 g/dl (6.1-8.1)
[2018-03-31] MEDS: ISOSORBIDE DINITRATE 10 MG TAB PO ×2 (16:35→20:01)
[2018-03-31] MEDS: DOCUSATE SODIUM 100 MG CAP PO ×2 (16:36→20:01)
[2018-03-31] MEDS: FAMOTIDINE 20 MG TAB PO (16:36)
[2018-03-31] MEDS: ASPIRIN 81 MG TAB PO (16:37)
[2018-03-31] MEDS: ATORVASTATIN 80 MG TAB PO (20:00)
[2018-03-31] MEDS: TAMSULOSIN (SR) 0.4 MG CAP PO (20:00)
[2018-03-31] MEDS: INSULIN GLARGINE [LANTus] (100 UNITS/ML) SYG SC (20:03)
[2018-04-01] MEDS: LEVALBUTEROL (NEB) 0.63 MG/3 ML AMP HHN ×2 (00:10→07:57)
[2018-04-01] MEDS: FUROSEMIDE 40 MG TAB PO (06:25)
[2018-04-01] MEDS: INSULIN ASPART [NOVOLOG] 3 ML PEN SC ×2 (08:16→12:00)
[2018-04-01] MEDS: DOCUSATE SODIUM 100 MG CAP PO (09:19)
[2018-04-01] MEDS: FAMOTIDINE 20 MG TAB PO (09:19)
[2018-04-01] MEDS: ASPIRIN 81 MG TAB PO (09:19)
[2018-04-01] MEDS: ISOSORBIDE DINITRATE 10 MG TAB PO (09:20)
[2018-04-01] MEDS: HEPARIN 1000 UNITS/ML 10 ML INJ CATHETER (14:56)
[2018-04-03 14:05] LABS: CREATININE, RANDOM URINE 85 mg/dL (20-370); MICROALBUMIN 120.2 mg/dL; MICROALBUMIN/CREATININE RATIO 1414 (<30)
[2018-04-03 14:06] LABS: PTH CALCIUM 8.2 mg/dL (8.6-10.3); PTH INTACT 166 pg/mL (14-64)
== END 2018-04-01 16:20 | disposition home or self-care (01) | DRG 286 ==
LOC: 6WM 03-24 18:21 → PP2 16:54
PROC: 0JH63XZ Insertion of Tunneled Vascular Access Device into Chest Subcutaneous Tissue and Fascia, Percutaneous Approach (ICD-10-PCS; principal; 2018-03-30 15:00)
PROC: B214YZZ Fluoroscopy of Right Heart using Other Contrast (ICD-10-PCS; 2018-03-30 15:00)
PROC: 02H633Z Insertion of Infusion Device into Right Atrium, Percutaneous Approach (ICD-10-PCS; 2018-03-30 15:00)
PROC: 5A1D70Z Performance of Urinary Filtration, Intermittent, Less than 6 Hours Per Day (ICD-10-PCS; 2018-03-30 17:30)
DX: I13.2 Hypertensive heart and chronic kidney disease with heart failure and with stage 5 chronic kidney disease, or end stage renal disease (principal); N18.6 End stage renal disease; J18.9 Pneumonia, unspecified organism; I50.43 Acute on chronic combined systolic (congestive) and diastolic (congestive) heart failure; N17.9 Acute kidney failure, unspecified; I69.951 Hemiplegia and hemiparesis following unspecified cerebrovascular disease affecting right dominant side; E11.22 Type 2 diabetes mellitus with diabetic chronic kidney disease; E11.21 Type 2 diabetes mellitus with diabetic nephropathy; E11.42 Type 2 diabetes mellitus with diabetic polyneuropathy; E78.5 Hyperlipidemia, unspecified; I35.1 Nonrheumatic aortic (valve) insufficiency; D63.1 Anemia in chronic kidney disease; I95.1 Orthostatic hypotension; I25.5 Ischemic cardiomyopathy; I25.10 Atherosclerotic heart disease of native coronary artery without angina pectoris; I48.0 Paroxysmal atrial fibrillation; M31.6 Other giant cell arteritis; N40.0 Benign prostatic hyperplasia without lower urinary tract symptoms; R10.9 Unspecified abdominal pain; Z95.1 Presence of aortocoronary bypass graft; Z95.810 Presence of automatic (implantable) cardiac defibrillator; Z99.2 Dependence on renal dialysis; I25.2 Old myocardial infarction; Z79.4 Long term (current) use of insulin; Z79.82 Long term (current) use of aspirin; Z79.01 Long term (current) use of anticoagulants
CPT/HCPCS: 71045; 71046; 74018; 76775; 76937; 80048; 80053; 80061; 80076; 81001; 81003; 82043; 82570; 82728; 82962; 83036; 83540; 83735; 83880; 83970; 84100; 84443; 84484; 85025; 85335; 85610; 85651; 86635; 86704; 86709; 86803; 87040; 87070; 87086; 87340; 90935; 93005; 93306; 93970; 94640; 94664; 97162; 99217; G0378

== ENCOUNTER 2018-08-02 00:05 | Emergency (ER) | payer MEDICARE, OTHER ==
[2018-08-02 01:24] LABS: ADD MAN DIFF? NO
[2018-08-02 01:33] LABS: BASOPHIL # 0.1 10^3/ul (0.0-0.1); BASOPHILS % 0.8 % (0.0-2.0); EOSINOPHILS # 0.5 10^3/ul (0.0-0.5); EOSINOPHILS % 6.7 % (0.0-7.0); HEMATOCRIT 36.2 % (42.0-52.0); HEMOGLOBIN 11.8 g/dl (14.0-18.0); LYMPHOCYTES # 1.9 10^3/ul (0.8-2.9); LYMPHOCYTES % 24.7 % (15.0-51.0); MEAN CORPUSCULAR HEMOGLOBIN 31.1 pg (29.0-33.0); MEAN CORPUSCULAR HGB CONC 32.6 g/dl (32.0-37.0); MEAN CORPUSCULAR VOLUME 95.5 fl (82.0-101.0); MEAN PLATELET VOLUME 11.3 fl (7.4-10.4); MONOCYTES % 12.2 % (0.0-11.0); NEUTROPHIL # 4.3 10^3/ul (1.6-7.5); NEUTROPHILS % 55.3 % (39.0-77.0); PLATELET COUNT 199 10^3/UL (140-415); RED BLOOD COUNT 3.79 10^6/ul (4.70-6.10); RED CELL DISTRIBUTION WIDTH 14.2 % (11.5-14.5)
[2018-08-02 01:33] LABS: WHITE BLOOD COUNT 7.8 10^3/ul (4.8-10.8)
[2018-08-02 01:43] LABS: INR 1.06; PROTIME 13.9 Sec (11.9-14.9); PT RATIO 1.1
[2018-08-02 01:44] LABS: PARTIAL THROMBOPLASTIN TIME 29.2 Sec (23.0-35.0)
[2018-08-02 01:56] LABS: ALANINE AMINOTRANSFERASE 15 IU/L (13-69); ALBUMIN 3.9 g/dl (3.3-4.9); ALBUMIN/GLOBULIN RATIO 1.05; ALKALINE PHOSPHATASE 116 IU/L (42-121); ANION GAP 11 (5-13); ASPARTATE AMINO TRANSFERASE 19 IU/L (15-46); BILIRUBIN,INDIRECT 0.4 mg/dl (0-1.1); BILIRUBIN,TOTAL 0.4 mg/dl (0.2-1.3); BLOOD UREA NITROGEN 57 mg/dl (7-20); CARBON DIOXIDE 27 mmol/L (21-31); CHLORIDE 100 mmol/L (97-110); CREATININE 5.05 mg/dl (0.61-1.24); GLUCOSE 226 mg/dl (70-220); POTASSIUM 4.5 mmol/L (3.5-5.1); SODIUM 138 mmol/L (135-144); TOTAL PROTEIN 7.6 g/dl (6.1-8.1)
[2018-08-02 02:01] LABS: LACTIC ACID 1.5 mmol/L (0.5-2.0)
[2018-08-02 02:26] LABS: B-TYPE NATRIURETIC PEPTIDE 27100 PG/ML (0-450)
== END 2018-08-02 03:34 | disposition home or self-care (01) ==
LOC: E/R 03:34
DX: R06.02 Shortness of breath (principal); R40.2252 Coma scale, best verbal response, oriented, at arrival to emergency department; R40.2362 Coma scale, best motor response, obeys commands, at arrival to emergency department; R40.2142 Coma scale, eyes open, spontaneous, at arrival to emergency department; I13.2 Hypertensive heart and chronic kidney disease with heart failure and with stage 5 chronic kidney disease, or end stage renal disease; N18.6 End stage renal disease; I50.9 Heart failure, unspecified; I25.10 Atherosclerotic heart disease of native coronary artery without angina pectoris; I25.2 Old myocardial infarction; Z87.891 Personal history of nicotine dependence; Z79.02 Long term (current) use of antithrombotics/antiplatelets
CPT/HCPCS: 36415; 71045; 80053; 83605; 83880; 84484; 85025; 85610; 85730; 93005; 99285-25

== ENCOUNTER 2018-09-02 22:26 | Emergency (ER) | payer SELFPAY, OTHER, MEDICARE | END 2018-09-03 00:04 | disposition left against medical advice (07) | LOC: E/R 22:26 | DX: Z53.21 Procedure and treatment not carried out due to patient leaving prior to being seen by health care provider (principal) ==

== ENCOUNTER 2018-11-06 14:09 | Inpatient (IN) | payer MEDICARE, OTHER ==
[2018-11-06 15:28] LABS: ADD MAN DIFF? NO
[2018-11-06 15:31] LABS: BASOPHILS % 0.5 % (0.0-2.0); EOSINOPHILS # 0.2 10^3/ul (0.0-0.5); EOSINOPHILS % 3.3 % (0.0-7.0); HEMATOCRIT 36.8 % (42.0-52.0); HEMOGLOBIN 11.8 g/dl (14.0-18.0); LYMPHOCYTES # 0.7 10^3/ul (0.8-2.9); LYMPHOCYTES % 12.5 % (15.0-51.0); MEAN CORPUSCULAR HEMOGLOBIN 30.9 pg (29.0-33.0); MEAN CORPUSCULAR HGB CONC 32.1 g/dl (32.0-37.0); MEAN CORPUSCULAR VOLUME 96.3 fl (82.0-101.0); MEAN PLATELET VOLUME 11.5 fl (7.4-10.4); MONOCYTE # 0.6 10^3/ul (0.3-0.9); MONOCYTES % 10.1 % (0.0-11.0); NEUTROPHIL # 4.2 10^3/ul (1.6-7.5); NEUTROPHILS % 73.3 % (39.0-77.0); PLATELET COUNT 166 10^3/UL (140-415); RED BLOOD COUNT 3.82 10^6/ul (4.70-6.10); RED CELL DISTRIBUTION WIDTH 16.4 % (11.5-14.5)
[2018-11-06 15:31] LABS: WHITE BLOOD COUNT 5.8 10^3/ul (4.8-10.8)
[2018-11-06] MEDS: ONDANSETRON 4 MG INJ IV (15:34)
[2018-11-06] MEDS: morphine 2 MG INJ IV (15:34)
[2018-11-06 15:51] LABS: INR 1.35; PARTIAL THROMBOPLASTIN TIME 34.2 Sec (23.0-35.0); PROTIME 16.8 Sec (11.9-14.9); PT RATIO 1.3
[2018-11-06 15:53] LABS: ALANINE AMINOTRANSFERASE 15 IU/L (13-69); ALBUMIN 3.8 g/dl (3.3-4.9); ALBUMIN/GLOBULIN RATIO 0.92; ALKALINE PHOSPHATASE 162 IU/L (42-121); ANION GAP 11 (5-13); ASPARTATE AMINO TRANSFERASE 19 IU/L (15-46); BILIRUBIN,INDIRECT 0.5 mg/dl (0-1.1); BILIRUBIN,TOTAL 0.5 mg/dl (0.2-1.3); BLOOD UREA NITROGEN 37 mg/dl (7-20); CALCIUM 9.2 mg/dl (8.4-10.2); CARBON DIOXIDE 29 mmol/L (21-31); CHLORIDE 98 mmol/L (97-110); CREATINE KINASE 32 IU/L (23-200); CREATININE 3.57 mg/dl (0.61-1.24); GLUCOSE 278 mg/dl (70-220); LIPASE 156 U/L (23-300); POTASSIUM 4.3 mmol/L (3.5-5.1); SODIUM 138 mmol/L (135-144); TOTAL PROTEIN 7.9 g/dl (6.1-8.1)
[2018-11-06 16:05] LABS: CK INDEX 1.5; CK-MB 0.48 ng/ml (0.0-2.4); TROPONIN-I 0.044 ng/ml (0.000-0.120)
[2018-11-06] MEDS: ALBUTEROL 0.5% (NEB) 2.5 MG/0.5 ML AMP NEB (16:05)
[2018-11-06] MEDS: IPRATROPIUM (NEB) 0.5 MG/2.5 ML AMP NEB (16:05)
[2018-11-06 16:21] LABS: B-TYPE NATRIURETIC PEPTIDE 46700 PG/ML (0-450)
[2018-11-06 16:29] LABS: ADD UMIC YES; UR ASCORBIC ACID NEGATIVE (NEGATIVE); UR BILIRUBIN (Dip) NEGATIVE (NEGATIVE); UR BLOOD (Dip) NEGATIVE (NEGATIVE); UR CLARITY SLIGHTLY CLOUDY (CLEAR); UR COLOR AMBER (YELLOW); UR GLUCOSE (Dip) 2+ mg/dL (NEGATIVE); UR KETONES (Dip) NEGATIVE (NEGATIVE); UR LEUKOCYTE ESTERASE (Dip) NEGATIVE Leu/ul (NEGATIVE); UR NITRITE (Dip) NEGATIVE (NEGATIVE); UR RBC 5 /HPF (0-5); UR SPECIFIC GRAVITY (Dip) 1.016 (1.003-1.030); UR TOTAL PROTEIN (Dip) 3+ mg/dl (NEGATIVE); UR UROBILINOGEN (Dip) 2+ mg/dL (NEGATIVE); UR WBC 3 /HPF (0-5)
[2018-11-06] MEDS: IBUPROFEN 800 MG TAB PO (17:15)
[2018-11-06] MEDS: ACETAMINOPHEN 500 MG TAB PO (17:16)
[2018-11-06] MEDS: CEFTRIAXONE 1 GM/50 ML (PMX) 50 ML IVPB (17:16)
[2018-11-06] MEDS: FUROSEMIDE 40 MG INJ IV ×2 (17:16→19:00)
[2018-11-06] MEDS ORDERED: ONDANSETRON 4 MG INJ IV (17:30)
[2018-11-06] MEDS ORDERED: ACETAMINOPHEN 325 MG TAB PO (17:30)
[2018-11-06] MEDS: AZITHROMYCIN 500MG/NS (PMX) 250 ML IV (17:59)
[2018-11-06] MEDS ORDERED: GLUCOSE GEL 15 GRAM TUBE PO ×2 (21:30)
[2018-11-06] MEDS ORDERED: GLUCAGON 1 MG INJ IM (21:30)
[2018-11-06] MEDS ORDERED: DEXTROSE 50% 50 ML SYRINGE IV ×2 (21:30)
[2018-11-06] MEDS ORDERED: GLUCOSE GEL 15 GRAM TUBE BUCCAL (21:30)
[2018-11-06] MEDS: FAMOTIDINE 20 MG TAB PO (21:34)
[2018-11-06] MEDS: APIXABAN 5 MG TABLET PO (21:34)
[2018-11-07 00:14] LABS: TROPONIN-I 0.083 ng/ml (0.000-0.120)
[2018-11-07] MEDS: ACCU-CHEK XX (02:00)
[2018-11-07 05:18] LABS: ADD MAN DIFF? NO
[2018-11-07] MEDS: PIPER-TAZO 2.25 GM (PMX) 50 ML IVPB ×3 (05:19→21:11)
[2018-11-07] MEDS: FUROSEMIDE 40 MG INJ IV (05:20)
[2018-11-07 05:24] LABS: WHITE BLOOD COUNT 3.6 10^3/ul (4.8-10.8)
[2018-11-07 05:24] LABS: BASOPHILS % 0.8 % (0.0-2.0); EOSINOPHILS # 0.4 10^3/ul (0.0-0.5); EOSINOPHILS % 9.7 % (0.0-7.0); HEMATOCRIT 35.4 % (42.0-52.0); HEMOGLOBIN 11.1 g/dl (14.0-18.0); LYMPHOCYTES # 0.8 10^3/ul (0.8-2.9); LYMPHOCYTES % 22.4 % (15.0-51.0); MEAN CORPUSCULAR HEMOGLOBIN 30.7 pg (29.0-33.0); MEAN CORPUSCULAR HGB CONC 31.4 g/dl (32.0-37.0); MEAN CORPUSCULAR VOLUME 97.8 fl (82.0-101.0); MONOCYTE # 0.5 10^3/ul (0.3-0.9); MONOCYTES % 13.3 % (0.0-11.0); NEUTROPHIL # 1.9 10^3/ul (1.6-7.5); NEUTROPHILS % 53.5 % (39.0-77.0); PLATELET COUNT 148 10^3/UL (140-415); RED BLOOD COUNT 3.62 10^6/ul (4.70-6.10); RED CELL DISTRIBUTION WIDTH 16.7 % (11.5-14.5)
[2018-11-07 05:41] LABS: ALANINE AMINOTRANSFERASE 21 IU/L (13-69); ALKALINE PHOSPHATASE 126 IU/L (42-121); ANION GAP 13 (5-13); ASPARTATE AMINO TRANSFERASE 14 IU/L (15-46); BILIRUBIN,INDIRECT 0.3 mg/dl (0-1.1); BILIRUBIN,TOTAL 0.3 mg/dl (0.2-1.3); BLOOD UREA NITROGEN 41 mg/dl (7-20); CARBON DIOXIDE 32 mmol/L (21-31); CHLORIDE 96 mmol/L (97-110); CREATININE 4.09 mg/dl (0.61-1.24); GLUCOSE 140 mg/dl (70-220); POTASSIUM 4.9 mmol/L (3.5-5.1); SODIUM 141 mmol/L (135-144); TOTAL PROTEIN 6.3 g/dl (6.1-8.1)
[2018-11-07 06:11] LABS: B-TYPE NATRIURETIC PEPTIDE 51400 PG/ML (0-450)
[2018-11-07 07:08] LABS: ERYTHROCYTE SEDIMENTATION RATE 49 mm/Hr (0-20)
[2018-11-07] MEDS: INSULIN ASPART [NOVOLOG] 3 ML PEN SC ×4 (07:39→21:00)
[2018-11-07] MEDS: ASPIRIN (EC) 81 MG TAB PO (08:35)
[2018-11-07] MEDS: TAMSULOSIN (SR) 0.4 MG CAP PO (08:35)
[2018-11-07] MEDS: APIXABAN 5 MG TABLET PO ×2 (08:36→20:58)
[2018-11-07 12:50] LABS: HEPATITIS B SURFACE ANTIGEN NEGATIVE (NEGATIVE)
[2018-11-07 13:08] LABS: HEPATITIS B SURFACE ANTIBODY POSITIVE (NEGATIVE)
[2018-11-07] MEDS: FAMOTIDINE 20 MG TAB PO (20:58)
[2018-11-08] MEDS: ACCU-CHEK XX (02:00)
[2018-11-08 05:45] LABS: ADD MAN DIFF? NO
[2018-11-08 05:48] LABS: BASOPHIL # 0.1 10^3/ul (0.0-0.1); BASOPHILS % 1.1 % (0.0-2.0); EOSINOPHILS # 0.2 10^3/ul (0.0-0.5); EOSINOPHILS % 4.1 % (0.0-7.0); HEMATOCRIT 34.6 % (42.0-52.0); HEMOGLOBIN 10.9 g/dl (14.0-18.0); LYMPHOCYTES # 1.1 10^3/ul (0.8-2.9); LYMPHOCYTES % 24.5 % (15.0-51.0); MEAN CORPUSCULAR HEMOGLOBIN 30.5 pg (29.0-33.0); MEAN CORPUSCULAR HGB CONC 31.5 g/dl (32.0-37.0); MEAN CORPUSCULAR VOLUME 96.9 fl (82.0-101.0); MEAN PLATELET VOLUME 10.8 fl (7.4-10.4); MONOCYTES % 21.4 % (0.0-11.0); NEUTROPHIL # 2.2 10^3/ul (1.6-7.5); NEUTROPHILS % 48.7 % (39.0-77.0); PLATELET COUNT 148 10^3/UL (140-415); RED BLOOD COUNT 3.57 10^6/ul (4.70-6.10); RED CELL DISTRIBUTION WIDTH 16.5 % (11.5-14.5)
[2018-11-08 05:48] LABS: WHITE BLOOD COUNT 4.6 10^3/ul (4.8-10.8)
[2018-11-08] MEDS: PIPER-TAZO 2.25 GM (PMX) 50 ML IVPB ×3 (05:54→20:45)
[2018-11-08 06:19] LABS: ANION GAP 12 (5-13); BLOOD UREA NITROGEN 31 mg/dl (7-20); CALCIUM 8.7 mg/dl (8.4-10.2); CARBON DIOXIDE 31 mmol/L (21-31); CHLORIDE 98 mmol/L (97-110); CREATININE 3.74 mg/dl (0.61-1.24); GLUCOSE 132 mg/dl (70-220); MAGNESIUM 2.1 mg/dl (1.7-2.5); PHOSPHORUS 4.8 mg/dl (2.5-4.9); POTASSIUM 4.3 mmol/L (3.5-5.1); SODIUM 141 mmol/L (135-144)
[2018-11-08 06:36] LABS: B-TYPE NATRIURETIC PEPTIDE 38500 PG/ML (0-450)
[2018-11-08] MEDS: INSULIN ASPART [NOVOLOG] 3 ML PEN SC ×4 (07:50→20:45)
[2018-11-08] MEDS: ASPIRIN (EC) 81 MG TAB PO (09:01)
[2018-11-08] MEDS: APIXABAN 5 MG TABLET PO ×2 (09:01→20:44)
[2018-11-08] MEDS: TAMSULOSIN (SR) 0.4 MG CAP PO (09:01)
[2018-11-08] MEDS: DOCUSATE SODIUM 100 MG CAP PO ×2 (09:01→20:45)
[2018-11-08] MEDS ORDERED: PENDING SANTYL ORDER FOR WOUND CARE XX (11:00)
[2018-11-08] MEDS: FAMOTIDINE 20 MG TAB PO (20:45)
[2018-11-09] MEDS: ACCU-CHEK XX (02:00)
[2018-11-09] MEDS: PIPER-TAZO 2.25 GM (PMX) 50 ML IVPB ×3 (05:37→21:28)
[2018-11-09 06:40] LABS: ADD MAN DIFF? NO
[2018-11-09 07:03] LABS: BASOPHILS % 0.6 % (0.0-2.0); EOSINOPHILS # 0.5 10^3/ul (0.0-0.5); EOSINOPHILS % 10.5 % (0.0-7.0); HEMATOCRIT 36.3 % (42.0-52.0); HEMOGLOBIN 11.4 g/dl (14.0-18.0); LYMPHOCYTES # 1.1 10^3/ul (0.8-2.9); LYMPHOCYTES % 23.3 % (15.0-51.0); MEAN CORPUSCULAR HEMOGLOBIN 30.6 pg (29.0-33.0); MEAN CORPUSCULAR HGB CONC 31.4 g/dl (32.0-37.0); MEAN CORPUSCULAR VOLUME 97.6 fl (82.0-101.0); MEAN PLATELET VOLUME 11.1 fl (7.4-10.4); MONOCYTE # 0.8 10^3/ul (0.3-0.9); MONOCYTES % 17.1 % (0.0-11.0); NEUTROPHIL # 2.4 10^3/ul (1.6-7.5); NEUTROPHILS % 48.3 % (39.0-77.0); PLATELET COUNT 155 10^3/UL (140-415); RED BLOOD COUNT 3.72 10^6/ul (4.70-6.10); RED CELL DISTRIBUTION WIDTH 16.7 % (11.5-14.5)
[2018-11-09 07:03] LABS: WHITE BLOOD COUNT 4.9 10^3/ul (4.8-10.8)
[2018-11-09 07:25] LABS: ANION GAP 13 (5-13); BLOOD UREA NITROGEN 47 mg/dl (7-20); CALCIUM 8.9 mg/dl (8.4-10.2); CARBON DIOXIDE 29 mmol/L (21-31); CHLORIDE 100 mmol/L (97-110); CREATININE 5.02 mg/dl (0.61-1.24); GLUCOSE 158 mg/dl (70-220); POTASSIUM 5.3 mmol/L (3.5-5.1); SODIUM 142 mmol/L (135-144)
[2018-11-09 07:32] LABS: MAGNESIUM 2.3 mg/dl (1.7-2.5)
[2018-11-09 07:32] LABS: PHOSPHORUS 5.9 mg/dl (2.5-4.9)
[2018-11-09] MEDS: INSULIN ASPART [NOVOLOG] 3 ML PEN SC ×4 (08:05→20:18)
[2018-11-09] MEDS: APIXABAN 5 MG TABLET PO ×2 (08:36→20:13)
[2018-11-09] MEDS: DOCUSATE SODIUM 100 MG CAP PO ×2 (08:36→20:12)
[2018-11-09] MEDS: TAMSULOSIN (SR) 0.4 MG CAP PO (08:36)
[2018-11-09] MEDS: ASPIRIN (EC) 81 MG TAB PO (08:37)
[2018-11-09] MEDS: CALCIUM ACETATE 667 MG CAP PO ×2 (11:45→17:17)
[2018-11-09] MEDS: FAMOTIDINE 20 MG TAB PO (20:12)
[2018-11-10] MEDS: ACCU-CHEK XX (02:00)
[2018-11-10 05:46] LABS: ADD MAN DIFF? NO
[2018-11-10] MEDS: PIPER-TAZO 2.25 GM (PMX) 50 ML IVPB ×3 (05:51→21:49)
[2018-11-10 05:54] LABS: BASOPHILS % 0.6 % (0.0-2.0); EOSINOPHILS # 0.5 10^3/ul (0.0-0.5); EOSINOPHILS % 11.2 % (0.0-7.0); HEMATOCRIT 34.8 % (42.0-52.0); HEMOGLOBIN 11.3 g/dl (14.0-18.0); LYMPHOCYTES # 1.3 10^3/ul (0.8-2.9); LYMPHOCYTES % 27.2 % (15.0-51.0); MEAN CORPUSCULAR HEMOGLOBIN 30.8 pg (29.0-33.0); MEAN CORPUSCULAR HGB CONC 32.5 g/dl (32.0-37.0); MEAN CORPUSCULAR VOLUME 94.8 fl (82.0-101.0); MEAN PLATELET VOLUME 11.2 fl (7.4-10.4); MONOCYTE # 0.7 10^3/ul (0.3-0.9); MONOCYTES % 14.9 % (0.0-11.0); NEUTROPHIL # 2.1 10^3/ul (1.6-7.5); NEUTROPHILS % 45.9 % (39.0-77.0); PLATELET COUNT 151 10^3/UL (140-415); RED BLOOD COUNT 3.67 10^6/ul (4.70-6.10); RED CELL DISTRIBUTION WIDTH 16.2 % (11.5-14.5)
[2018-11-10 05:54] LABS: WHITE BLOOD COUNT 4.6 10^3/ul (4.8-10.8)
[2018-11-10 06:15] LABS: ANION GAP 13 (5-13); BLOOD UREA NITROGEN 32 mg/dl (7-20); CALCIUM 8.7 mg/dl (8.4-10.2); CARBON DIOXIDE 31 mmol/L (21-31); CHLORIDE 96 mmol/L (97-110); CREATININE 4.11 mg/dl (0.61-1.24); GLUCOSE 102 mg/dl (70-220); POTASSIUM 3.8 mmol/L (3.5-5.1); SODIUM 140 mmol/L (135-144)
[2018-11-10] MEDS: INSULIN ASPART [NOVOLOG] 3 ML PEN SC ×4 (07:44→20:52)
[2018-11-10] MEDS: CALCIUM ACETATE 667 MG CAP PO ×3 (08:14→17:30)
[2018-11-10] MEDS: DOCUSATE SODIUM 100 MG CAP PO ×2 (08:14→20:53)
[2018-11-10] MEDS: APIXABAN 5 MG TABLET PO ×2 (08:14→20:53)
[2018-11-10] MEDS: TAMSULOSIN (SR) 0.4 MG CAP PO (08:15)
[2018-11-10] MEDS: ASPIRIN (EC) 81 MG TAB PO (08:15)
[2018-11-10 15:37] LABS: PROCALCITONIN 0.12 ng/mL (<0.10)
[2018-11-10] MEDS: FAMOTIDINE 20 MG TAB PO (20:53)
[2018-11-11] MEDS: ACCU-CHEK XX (02:00)
[2018-11-11] MEDS: PIPER-TAZO 2.25 GM (PMX) 50 ML IVPB ×3 (05:49→22:11)
[2018-11-11 06:04] LABS: ADD MAN DIFF? NO
[2018-11-11 06:18] LABS: BASOPHILS % 0.6 % (0.0-2.0); EOSINOPHILS # 0.3 10^3/ul (0.0-0.5); EOSINOPHILS % 7.1 % (0.0-7.0); HEMATOCRIT 38.4 % (42.0-52.0); HEMOGLOBIN 12.6 g/dl (14.0-18.0); LYMPHOCYTES # 1.3 10^3/ul (0.8-2.9); LYMPHOCYTES % 26.9 % (15.0-51.0); MEAN CORPUSCULAR HEMOGLOBIN 30.8 pg (29.0-33.0); MEAN CORPUSCULAR HGB CONC 32.8 g/dl (32.0-37.0); MEAN CORPUSCULAR VOLUME 93.9 fl (82.0-101.0); MEAN PLATELET VOLUME 11.4 fl (7.4-10.4); MONOCYTE # 0.7 10^3/ul (0.3-0.9); MONOCYTES % 15.8 % (0.0-11.0); NEUTROPHIL # 2.3 10^3/ul (1.6-7.5); NEUTROPHILS % 49.2 % (39.0-77.0); PLATELET COUNT 171 10^3/UL (140-415); RED BLOOD COUNT 4.09 10^6/ul (4.70-6.10)
[2018-11-11 06:18] LABS: WHITE BLOOD COUNT 4.7 10^3/ul (4.8-10.8)
[2018-11-11 07:28] LABS: B-TYPE NATRIURETIC PEPTIDE 40200 PG/ML (0-450)
[2018-11-11] MEDS: CALCIUM ACETATE 667 MG CAP PO ×3 (07:43→17:21)
[2018-11-11] MEDS: INSULIN ASPART [NOVOLOG] 3 ML PEN SC ×4 (07:45→21:00)
[2018-11-11 08:27] LABS: ANION GAP 18 (5-13); BLOOD UREA NITROGEN 44 mg/dl (7-20); CALCIUM 9.2 mg/dl (8.4-10.2); CARBON DIOXIDE 24 mmol/L (21-31); CHLORIDE 98 mmol/L (97-110); CREATININE 5.26 mg/dl (0.61-1.24); GLUCOSE 159 mg/dl (70-220); MAGNESIUM 2.1 mg/dl (1.7-2.5); PHOSPHORUS 4.9 mg/dl (2.5-4.9); POTASSIUM 4.3 mmol/L (3.5-5.1); SODIUM 140 mmol/L (135-144)
[2018-11-11] MEDS: DOCUSATE SODIUM 100 MG CAP PO ×2 (14:08→20:41)
[2018-11-11] MEDS: APIXABAN 5 MG TABLET PO ×2 (14:08→20:41)
[2018-11-11] MEDS: ASPIRIN (EC) 81 MG TAB PO (14:09)
[2018-11-11] MEDS: TAMSULOSIN (SR) 0.4 MG CAP PO (14:11)
[2018-11-11] MEDS: AMLODIPINE 2.5 MG TAB PO ×2 (14:16→20:42)
[2018-11-11] MEDS: FAMOTIDINE 20 MG TAB PO (20:41)
[2018-11-12] MEDS: ACCU-CHEK XX (02:00)
[2018-11-12 06:04] LABS: ADD MAN DIFF? NO; BASOPHILS % 0.5 % (0.0-2.0); EOSINOPHILS # 0.3 10^3/ul (0.0-0.5); HEMOGLOBIN 11.6 g/dl (14.0-18.0); LYMPHOCYTES # 1.5 10^3/ul (0.8-2.9); LYMPHOCYTES % 36.4 % (15.0-51.0); MEAN CORPUSCULAR HEMOGLOBIN 30.4 pg (29.0-33.0); MEAN CORPUSCULAR HGB CONC 32.2 g/dl (32.0-37.0); MEAN CORPUSCULAR VOLUME 94.2 fl (82.0-101.0); MONOCYTE # 0.6 10^3/ul (0.3-0.9); MONOCYTES % 15.2 % (0.0-11.0); NEUTROPHIL # 1.8 10^3/ul (1.6-7.5); NEUTROPHILS % 41.7 % (39.0-77.0); PLATELET COUNT 174 10^3/UL (140-415); RED BLOOD COUNT 3.82 10^6/ul (4.70-6.10); RED CELL DISTRIBUTION WIDTH 16.1 % (11.5-14.5)
[2018-11-12 06:04] LABS: WHITE BLOOD COUNT 4.2 10^3/ul (4.8-10.8)
[2018-11-12 06:17] LABS: PHOSPHORUS 3.9 mg/dl (2.5-4.9)
[2018-11-12 06:17] LABS: MAGNESIUM 2.1 mg/dl (1.7-2.5)
[2018-11-12] MEDS: PIPER-TAZO 2.25 GM (PMX) 50 ML IVPB ×3 (06:19→22:06)
[2018-11-12 06:25] LABS: B-TYPE NATRIURETIC PEPTIDE 33600 PG/ML (0-450)
[2018-11-12] MEDS: INSULIN ASPART [NOVOLOG] 3 ML PEN SC ×4 (08:00→21:00)
[2018-11-12] MEDS: CALCIUM ACETATE 667 MG CAP PO ×3 (08:45→17:14)
[2018-11-12] MEDS: DOCUSATE SODIUM 100 MG CAP PO ×2 (08:45→21:19)
[2018-11-12] MEDS: APIXABAN 5 MG TABLET PO ×2 (08:46→21:19)
[2018-11-12] MEDS: TAMSULOSIN (SR) 0.4 MG CAP PO (08:46)
[2018-11-12] MEDS: ASPIRIN (EC) 81 MG TAB PO (08:46)
[2018-11-12] MEDS: AMLODIPINE 2.5 MG TAB PO ×2 (08:47→21:20)
[2018-11-12] MEDS: FAMOTIDINE 20 MG TAB PO (21:20)
[2018-11-13] MEDS: ACCU-CHEK XX (02:00)
[2018-11-13 05:37] LABS: ADD MAN DIFF? NO
[2018-11-13 05:39] LABS: BASOPHILS % 0.5 % (0.0-2.0); EOSINOPHILS # 0.4 10^3/ul (0.0-0.5); EOSINOPHILS % 6.2 % (0.0-7.0); HEMATOCRIT 35.6 % (42.0-52.0); HEMOGLOBIN 11.4 g/dl (14.0-18.0); LYMPHOCYTES # 1.4 10^3/ul (0.8-2.9); LYMPHOCYTES % 22.7 % (15.0-51.0); MEAN CORPUSCULAR HEMOGLOBIN 30.1 pg (29.0-33.0); MEAN CORPUSCULAR VOLUME 93.9 fl (82.0-101.0); MEAN PLATELET VOLUME 11.3 fl (7.4-10.4); MONOCYTE # 0.7 10^3/ul (0.3-0.9); MONOCYTES % 11.3 % (0.0-11.0); NEUTROPHIL # 3.6 10^3/ul (1.6-7.5); NEUTROPHILS % 59.1 % (39.0-77.0); PLATELET COUNT 182 10^3/UL (140-415); RED BLOOD COUNT 3.79 10^6/ul (4.70-6.10); RED CELL DISTRIBUTION WIDTH 15.9 % (11.5-14.5)
[2018-11-13] MEDS: PIPER-TAZO 2.25 GM (PMX) 50 ML IVPB ×3 (05:47→21:31)
[2018-11-13 06:35] LABS: ALANINE AMINOTRANSFERASE 25 IU/L (13-69); ALBUMIN 3.3 g/dl (3.3-4.9); ALBUMIN/GLOBULIN RATIO 0.91; ALKALINE PHOSPHATASE 136 IU/L (42-121); ANION GAP 11 (5-13); ASPARTATE AMINO TRANSFERASE 32 IU/L (15-46); BILIRUBIN,INDIRECT 0.2 mg/dl (0-1.1); BILIRUBIN,TOTAL 0.2 mg/dl (0.2-1.3); BLOOD UREA NITROGEN 52 mg/dl (7-20); CARBON DIOXIDE 30 mmol/L (21-31); CHLORIDE 98 mmol/L (97-110); CREATININE 6.01 mg/dl (0.61-1.24); GLUCOSE 151 mg/dl (70-220); PHOSPHORUS 4.4 mg/dl (2.5-4.9); POTASSIUM 4.9 mmol/L (3.5-5.1); SODIUM 139 mmol/L (135-144); TOTAL PROTEIN 6.9 g/dl (6.1-8.1)
[2018-11-13] MEDS: INSULIN ASPART [NOVOLOG] 3 ML PEN SC ×4 (08:00→21:36)
[2018-11-13] MEDS: CALCIUM ACETATE 667 MG CAP PO ×3 (08:47→17:29)
[2018-11-13] MEDS: DOCUSATE SODIUM 100 MG CAP PO ×2 (08:48→21:15)
[2018-11-13] MEDS: APIXABAN 5 MG TABLET PO ×2 (08:49→21:17)
[2018-11-13] MEDS: ASPIRIN (EC) 81 MG TAB PO (08:49)
[2018-11-13] MEDS: TAMSULOSIN (SR) 0.4 MG CAP PO (08:49)
[2018-11-13] MEDS: AMLODIPINE 2.5 MG TAB PO ×2 (08:50→21:16)
[2018-11-13] MEDS: FAMOTIDINE 20 MG TAB PO (21:15)
[2018-11-14] MEDS: ACCU-CHEK XX (02:00)
[2018-11-14 06:08] LABS: ADD MAN DIFF? NO
[2018-11-14 06:28] LABS: BASOPHILS % 0.5 % (0.0-2.0); EOSINOPHILS # 0.3 10^3/ul (0.0-0.5); EOSINOPHILS % 5.6 % (0.0-7.0); HEMATOCRIT 37.7 % (42.0-52.0); HEMOGLOBIN 12.5 g/dl (14.0-18.0); LYMPHOCYTES # 1.1 10^3/ul (0.8-2.9); LYMPHOCYTES % 17.8 % (15.0-51.0); MEAN CORPUSCULAR HEMOGLOBIN 30.3 pg (29.0-33.0); MEAN CORPUSCULAR HGB CONC 33.2 g/dl (32.0-37.0); MEAN CORPUSCULAR VOLUME 91.5 fl (82.0-101.0); MEAN PLATELET VOLUME 11.5 fl (7.4-10.4); MONOCYTE # 0.7 10^3/ul (0.3-0.9); MONOCYTES % 11.6 % (0.0-11.0); NEUTROPHIL # 3.9 10^3/ul (1.6-7.5); PLATELET COUNT 197 10^3/UL (140-415); RED BLOOD COUNT 4.12 10^6/ul (4.70-6.10); RED CELL DISTRIBUTION WIDTH 15.7 % (11.5-14.5)
[2018-11-14 06:28] LABS: WHITE BLOOD COUNT 6.1 10^3/ul (4.8-10.8)
[2018-11-14] MEDS: PIPER-TAZO 2.25 GM (PMX) 50 ML IVPB ×3 (06:30→20:12)
[2018-11-14 07:06] LABS: ALANINE AMINOTRANSFERASE 21 IU/L (13-69); ALBUMIN 3.7 g/dl (3.3-4.9); ALBUMIN/GLOBULIN RATIO 0.92; ALKALINE PHOSPHATASE 137 IU/L (42-121); ANION GAP 15 (5-13); ASPARTATE AMINO TRANSFERASE 28 IU/L (15-46); BILIRUBIN,INDIRECT 0.4 mg/dl (0-1.1); BILIRUBIN,TOTAL 0.4 mg/dl (0.2-1.3); BLOOD UREA NITROGEN 24 mg/dl (7-20); CARBON DIOXIDE 30 mmol/L (21-31); CHLORIDE 95 mmol/L (97-110); CREATININE 3.23 mg/dl (0.61-1.24); GLUCOSE 107 mg/dl (70-220); POTASSIUM 3.4 mmol/L (3.5-5.1); SODIUM 140 mmol/L (135-144); TOTAL PROTEIN 7.7 g/dl (6.1-8.1)
[2018-11-14] MEDS: INSULIN ASPART [NOVOLOG] 3 ML PEN SC ×4 (07:50→20:12)
[2018-11-14] MEDS: CALCIUM ACETATE 667 MG CAP PO ×3 (08:34→17:42)
[2018-11-14] MEDS: APIXABAN 5 MG TABLET PO ×2 (08:35→20:07)
[2018-11-14] MEDS: AMLODIPINE 2.5 MG TAB PO ×2 (08:35→20:07)
[2018-11-14] MEDS: ASPIRIN (EC) 81 MG TAB PO (08:35)
[2018-11-14] MEDS: TAMSULOSIN (SR) 0.4 MG CAP PO (08:35)
[2018-11-14] MEDS: DOCUSATE SODIUM 100 MG CAP PO ×2 (08:35→21:00)
[2018-11-14] MEDS: POTASSIUM CHLORIDE (SR) 20 MEQ TAB PO (10:41)
[2018-11-14] MEDS: FAMOTIDINE 20 MG TAB PO (20:07)
[2018-11-15] MEDS: ACCU-CHEK XX (02:00)
[2018-11-15] MEDS: PIPER-TAZO 2.25 GM (PMX) 50 ML IVPB ×3 (06:03→21:25)
[2018-11-15 07:02] LABS: ADD MAN DIFF? NO
[2018-11-15 07:22] LABS: BASOPHIL # 0.1 10^3/ul (0.0-0.1); BASOPHILS % 0.9 % (0.0-2.0); EOSINOPHILS # 0.4 10^3/ul (0.0-0.5); EOSINOPHILS % 6.9 % (0.0-7.0); HEMATOCRIT 34.4 % (42.0-52.0); HEMOGLOBIN 11.3 g/dl (14.0-18.0); LYMPHOCYTES # 1.6 10^3/ul (0.8-2.9); LYMPHOCYTES % 27.9 % (15.0-51.0); MEAN CORPUSCULAR HEMOGLOBIN 30.4 pg (29.0-33.0); MEAN CORPUSCULAR HGB CONC 32.8 g/dl (32.0-37.0); MEAN CORPUSCULAR VOLUME 92.5 fl (82.0-101.0); MEAN PLATELET VOLUME 11.2 fl (7.4-10.4); MONOCYTE # 0.7 10^3/ul (0.3-0.9); MONOCYTES % 12.9 % (0.0-11.0); NEUTROPHIL # 2.9 10^3/ul (1.6-7.5); PLATELET COUNT 210 10^3/UL (140-415); RED BLOOD COUNT 3.72 10^6/ul (4.70-6.10); RED CELL DISTRIBUTION WIDTH 15.9 % (11.5-14.5)
[2018-11-15 07:22] LABS: WHITE BLOOD COUNT 5.7 10^3/ul (4.8-10.8)
[2018-11-15 07:50] LABS: B-TYPE NATRIURETIC PEPTIDE 29200 PG/ML (0-450)
[2018-11-15] MEDS: INSULIN ASPART [NOVOLOG] 3 ML PEN SC ×4 (07:50→20:26)
[2018-11-15 07:52] LABS: ANION GAP 13 (5-13); BLOOD UREA NITROGEN 41 mg/dl (7-20); CALCIUM 8.8 mg/dl (8.4-10.2); CARBON DIOXIDE 29 mmol/L (21-31); CHLORIDE 97 mmol/L (97-110); CREATININE 5.65 mg/dl (0.61-1.24); GLUCOSE 105 mg/dl (70-220); MAGNESIUM 2.2 mg/dl (1.7-2.5); PHOSPHORUS 3.7 mg/dl (2.5-4.9); SODIUM 139 mmol/L (135-144)
[2018-11-15] MEDS: ASPIRIN (EC) 81 MG TAB PO (08:25)
[2018-11-15] MEDS: TAMSULOSIN (SR) 0.4 MG CAP PO (08:25)
[2018-11-15] MEDS: DOCUSATE SODIUM 100 MG CAP PO ×2 (08:25→20:40)
[2018-11-15] MEDS: CALCIUM ACETATE 667 MG CAP PO ×3 (08:25→17:41)
[2018-11-15] MEDS: AMLODIPINE 2.5 MG TAB PO ×2 (08:25→20:22)
[2018-11-15] MEDS: APIXABAN 5 MG TABLET PO ×2 (08:25→20:21)
[2018-11-15] MEDS: FAMOTIDINE 20 MG TAB PO (20:23)
[2018-11-16] MEDS: ACCU-CHEK XX (02:00)
[2018-11-16] MEDS: PIPER-TAZO 2.25 GM (PMX) 50 ML IVPB ×3 (05:10→20:09)
[2018-11-16 05:27] LABS: ADD MAN DIFF? NO
[2018-11-16 05:33] LABS: WHITE BLOOD COUNT 6.2 10^3/ul (4.8-10.8)
[2018-11-16 05:33] LABS: HEMATOCRIT 35.3 % (42.0-52.0); HEMOGLOBIN 11.8 g/dl (14.0-18.0); LYMPHOCYTES % 21.6 % (15.0-51.0); MEAN CORPUSCULAR HEMOGLOBIN 30.5 pg (29.0-33.0); MEAN CORPUSCULAR HGB CONC 33.4 g/dl (32.0-37.0); MEAN CORPUSCULAR VOLUME 91.2 fl (82.0-101.0); MONOCYTES % 12.7 % (0.0-11.0); NEUTROPHILS % 58.4 % (39.0-77.0); PLATELET COUNT 239 10^3/UL (140-415); RED BLOOD COUNT 3.87 10^6/ul (4.70-6.10); RED CELL DISTRIBUTION WIDTH 15.7 % (11.5-14.5)
[2018-11-16 05:34] LABS: BASOPHIL # 0.1 10^3/ul (0.0-0.1); EOSINOPHILS # 0.4 10^3/ul (0.0-0.5); LYMPHOCYTES # 1.3 10^3/ul (0.8-2.9); MONOCYTE # 0.8 10^3/ul (0.3-0.9); NEUTROPHIL # 3.6 10^3/ul (1.6-7.5)
[2018-11-16 06:08] LABS: ANION GAP 14 (5-13); BLOOD UREA NITROGEN 58 mg/dl (7-20); CALCIUM 9.4 mg/dl (8.4-10.2); CARBON DIOXIDE 27 mmol/L (21-31); CHLORIDE 96 mmol/L (97-110); CREATININE 7.23 mg/dl (0.61-1.24); GLUCOSE 131 mg/dl (70-220); MAGNESIUM 2.3 mg/dl (1.7-2.5); PHOSPHORUS 4.1 mg/dl (2.5-4.9); SODIUM 137 mmol/L (135-144)
[2018-11-16] MEDS: CALCIUM ACETATE 667 MG CAP PO ×3 (07:37→17:47)
[2018-11-16] MEDS: INSULIN ASPART [NOVOLOG] 3 ML PEN SC ×4 (07:44→20:22)
[2018-11-16] MEDS: DOCUSATE SODIUM 100 MG CAP PO ×2 (08:30→21:00)
[2018-11-16] MEDS: APIXABAN 5 MG TABLET PO ×2 (08:30→20:08)
[2018-11-16] MEDS: ASPIRIN (EC) 81 MG TAB PO (08:30)
[2018-11-16] MEDS: AMLODIPINE 2.5 MG TAB PO ×2 (08:30→20:07)
[2018-11-16] MEDS: TAMSULOSIN (SR) 0.4 MG CAP PO (08:31)
[2018-11-16] MEDS: FAMOTIDINE 20 MG TAB PO (20:08)
[2018-11-17] MEDS: ACCU-CHEK XX (02:00)
[2018-11-17 05:46] LABS: ANION GAP 18 (5-13); BLOOD UREA NITROGEN 73 mg/dl (7-20); CALCIUM 9.2 mg/dl (8.4-10.2); CARBON DIOXIDE 25 mmol/L (21-31); CHLORIDE 95 mmol/L (97-110); CREATININE 8.87 mg/dl (0.61-1.24); GLUCOSE 138 mg/dl (70-220); POTASSIUM 4.2 mmol/L (3.5-5.1); SODIUM 138 mmol/L (135-144)
[2018-11-17] MEDS: CALCIUM ACETATE 667 MG CAP PO ×3 (07:38→17:14)
[2018-11-17] MEDS: INSULIN ASPART [NOVOLOG] 3 ML PEN SC ×4 (07:39→21:00)
[2018-11-17] MEDS: TAMSULOSIN (SR) 0.4 MG CAP PO (08:26)
[2018-11-17] MEDS: ASPIRIN (EC) 81 MG TAB PO (08:26)
[2018-11-17] MEDS: AMLODIPINE 2.5 MG TAB PO ×2 (08:26→20:47)
[2018-11-17] MEDS: APIXABAN 5 MG TABLET PO ×2 (08:26→20:49)
[2018-11-17] MEDS: DOCUSATE SODIUM 100 MG CAP PO ×2 (08:29→20:49)
[2018-11-17] MEDS: GUAIFENESIN/CODEINE 5ML CUP PO ×2 (17:22→23:57)
[2018-11-17] MEDS: BENZONATATE 100 MG CAP PO (20:47)
[2018-11-17] MEDS: FAMOTIDINE 20 MG TAB PO (20:54)
[2018-11-18] MEDS: ACCU-CHEK XX (02:00)
[2018-11-18] MEDS: INSULIN ASPART [NOVOLOG] 3 ML PEN SC ×4 (07:37→21:00)
[2018-11-18] MEDS: CALCIUM ACETATE 667 MG CAP PO ×3 (08:50→17:19)
[2018-11-18] MEDS: ASPIRIN (EC) 81 MG TAB PO (08:50)
[2018-11-18] MEDS: BENZONATATE 100 MG CAP PO ×3 (08:51→21:07)
[2018-11-18] MEDS: TAMSULOSIN (SR) 0.4 MG CAP PO (08:51)
[2018-11-18] MEDS: AMLODIPINE 2.5 MG TAB PO ×2 (08:51→21:08)
[2018-11-18] MEDS: APIXABAN 5 MG TABLET PO ×2 (08:51→21:08)
[2018-11-18] MEDS: DOCUSATE SODIUM 100 MG CAP PO ×2 (08:54→21:08)
[2018-11-18] MEDS: FAMOTIDINE 20 MG TAB PO (21:08)
== END 2018-11-18 22:35 | DRG 291 ==
LOC: E/R 14:09 → 6WM 17:28
PROC: 5A1D70Z Performance of Urinary Filtration, Intermittent, Less than 6 Hours Per Day (ICD-10-PCS; principal; 2018-11-07)
DX: I13.2 Hypertensive heart and chronic kidney disease with heart failure and with stage 5 chronic kidney disease, or end stage renal disease (principal); N18.6 End stage renal disease; I50.43 Acute on chronic combined systolic (congestive) and diastolic (congestive) heart failure; J18.9 Pneumonia, unspecified organism; E11.22 Type 2 diabetes mellitus with diabetic chronic kidney disease; E11.40 Type 2 diabetes mellitus with diabetic neuropathy, unspecified; I25.2 Old myocardial infarction; F17.200 Nicotine dependence, unspecified, uncomplicated; I25.10 Atherosclerotic heart disease of native coronary artery without angina pectoris; I25.5 Ischemic cardiomyopathy; Z99.2 Dependence on renal dialysis; Z95.810 Presence of automatic (implantable) cardiac defibrillator; Z86.73 Personal history of transient ischemic attack (TIA), and cerebral infarction without residual deficits; Z95.1 Presence of aortocoronary bypass graft
CPT/HCPCS: 71045; 76705; 80048; 80053; 81001; 82550; 82553; 82962; 83690; 83735; 83880; 84100; 84145; 84484; 85025; 85610; 85651; 85730; 86706; 87040; 87081; 87086; 87340; 87400; 90935; 93005; 93306; 93970; 94664; 96365; 96375; 97110; 97116; 97162; 97530; 99285-25

== ENCOUNTER 2018-11-18 22:39 | Inpatient (IN) | payer MEDICARE, OTHER ==
[2018-11-18] MEDS ORDERED: DEXTROSE 50% 50 ML SYRINGE IV ×2 (23:18)
[2018-11-18] MEDS ORDERED: GUAIFENESIN/CODEINE 5ML CUP PO (23:18)
[2018-11-18] MEDS ORDERED: PENDING SANTYL ORDER FOR WOUND CARE XX ×2 (23:18→23:30)
[2018-11-18] MEDS ORDERED: GLUCOSE GEL 15 GRAM TUBE PO ×2 (23:18)
[2018-11-18] MEDS ORDERED: GLUCAGON 1 MG INJ IM (23:18)
[2018-11-18] MEDS ORDERED: GLUCOSE GEL 15 GRAM TUBE BUCCAL (23:18)
[2018-11-19] MEDS ORDERED: MAGNESIUM HYDROXIDE 30ML CUP PO (01:30)
[2018-11-19] MEDS ORDERED: BISACODYL 10 MG SUPP PR (01:30)
[2018-11-19] MEDS: ACCU-CHEK XX (02:00)
[2018-11-19 07:08] LABS: ADD MAN DIFF? NO
[2018-11-19 07:15] LABS: WHITE BLOOD COUNT 6.9 10^3/ul (4.8-10.8)
[2018-11-19 07:15] LABS: BASOPHIL # 0.1 10^3/ul (0.0-0.1); BASOPHILS % 0.9 % (0.0-2.0); EOSINOPHILS # 0.7 10^3/ul (0.0-0.5); HEMATOCRIT 34.9 % (42.0-52.0); HEMOGLOBIN 11.6 g/dl (14.0-18.0); LYMPHOCYTES # 1.3 10^3/ul (0.8-2.9); LYMPHOCYTES % 18.1 % (15.0-51.0); MEAN CORPUSCULAR HEMOGLOBIN 30.1 pg (29.0-33.0); MEAN CORPUSCULAR HGB CONC 33.2 g/dl (32.0-37.0); MEAN CORPUSCULAR VOLUME 90.6 fl (82.0-101.0); MEAN PLATELET VOLUME 10.7 fl (7.4-10.4); MONOCYTE # 1.1 10^3/ul (0.3-0.9); MONOCYTES % 16.1 % (0.0-11.0); NEUTROPHIL # 3.8 10^3/ul (1.6-7.5); NEUTROPHILS % 54.5 % (39.0-77.0); PLATELET COUNT 293 10^3/UL (140-415); RED BLOOD COUNT 3.85 10^6/ul (4.70-6.10); RED CELL DISTRIBUTION WIDTH 15.2 % (11.5-14.5)
[2018-11-19 07:32] LABS: ALANINE AMINOTRANSFERASE 11 IU/L (13-69); ALBUMIN 3.5 g/dl (3.3-4.9); ALBUMIN/GLOBULIN RATIO 0.83; ALKALINE PHOSPHATASE 117 IU/L (42-121); ANION GAP 14 (5-13); ASPARTATE AMINO TRANSFERASE 19 IU/L (15-46); BILIRUBIN,INDIRECT 0.3 mg/dl (0-1.1); BILIRUBIN,TOTAL 0.3 mg/dl (0.2-1.3); BLOOD UREA NITROGEN 63 mg/dl (7-20); CALCIUM 9.3 mg/dl (8.4-10.2); CARBON DIOXIDE 26 mmol/L (21-31); CHLORIDE 94 mmol/L (97-110); CREATININE 8.08 mg/dl (0.61-1.24); GLUCOSE 136 mg/dl (70-220); POTASSIUM 4.7 mmol/L (3.5-5.1); SODIUM 134 mmol/L (135-144); TOTAL PROTEIN 7.7 g/dl (6.1-8.1)
[2018-11-19] MEDS: INSULIN ASPART [NOVOLOG] 3 ML PEN SC ×4 (07:35→21:00)
[2018-11-19] MEDS: CALCIUM ACETATE 667 MG CAP PO ×3 (08:21→17:35)
[2018-11-19] MEDS: ASPIRIN (EC) 81 MG TAB PO (09:32)
[2018-11-19] MEDS: APIXABAN 5 MG TABLET PO ×2 (09:32→20:50)
[2018-11-19] MEDS: BENZONATATE 100 MG CAP PO ×3 (09:32→20:50)
[2018-11-19] MEDS: AMLODIPINE 2.5 MG TAB PO ×2 (09:32→20:52)
[2018-11-19] MEDS: TAMSULOSIN (SR) 0.4 MG CAP PO (09:38)
[2018-11-19] MEDS: DOCUSATE SODIUM 100 MG CAP PO ×2 (09:38→21:00)
[2018-11-19] MEDS ORDERED: SODIUM CHLORIDE 0.9% 1L BAG IV (15:30)
[2018-11-19 16:21] LABS: ADD UMIC YES; UR AMORPHOUS CRYSTAL MODERATE /HPF (NONE SEEN); UR ASCORBIC ACID NEGATIVE (NEGATIVE); UR BACTERIA FEW /HPF (NONE SEEN); UR BILIRUBIN (Dip) NEGATIVE (NEGATIVE); UR BLOOD (Dip) 1+ mg/dL (NEGATIVE); UR CLARITY SLIGHTLY CLOUDY (CLEAR); UR COLOR YELLOW (YELLOW); UR GLUCOSE (Dip) 1+ mg/dL (NEGATIVE); UR KETONES (Dip) NEGATIVE (NEGATIVE); UR LEUKOCYTE ESTERASE (Dip) NEGATIVE Leu/ul (NEGATIVE); UR NITRITE (Dip) NEGATIVE (NEGATIVE); UR RBC 5 /HPF (0-5); UR SPECIFIC GRAVITY (Dip) 1.015 (1.003-1.030); UR SQUAMOUS EPITHELIAL CELL FEW /HPF (FEW); UR TOTAL PROTEIN (Dip) 2+ mg/dl (NEGATIVE); UR UROBILINOGEN (Dip) NEGATIVE (NEGATIVE); UR WBC 6 /HPF (0-5)
[2018-11-19] MEDS: FAMOTIDINE 20 MG TAB PO (20:50)
[2018-11-19] MEDS: SENNA TAB PO (21:00)
[2018-11-20] MEDS: ACCU-CHEK XX (02:00)
[2018-11-20] MEDS: CALCIUM ACETATE 667 MG CAP PO ×3 (08:04→17:36)
[2018-11-20] MEDS: INSULIN ASPART [NOVOLOG] 3 ML PEN SC ×4 (08:07→21:00)
[2018-11-20] MEDS: AMLODIPINE 2.5 MG TAB PO ×2 (09:00→21:10)
[2018-11-20] MEDS: BENZONATATE 100 MG CAP PO ×3 (09:12→21:01)
[2018-11-20] MEDS: ASPIRIN (EC) 81 MG TAB PO (09:12)
[2018-11-20] MEDS: DOCUSATE SODIUM 100 MG CAP PO ×2 (09:12→21:00)
[2018-11-20] MEDS: APIXABAN 5 MG TABLET PO ×2 (09:13→21:01)
[2018-11-20] MEDS: TAMSULOSIN (SR) 0.4 MG CAP PO (09:13)
[2018-11-20] MEDS: ACETAMINOPHEN 325 MG TAB PO ×2 (15:11→21:26)
[2018-11-20 17:18] LABS: WHITE BLOOD COUNT 6.4 10^3/ul (4.8-10.8)
[2018-11-20 17:18] LABS: HEMATOCRIT 34.4 % (42.0-52.0); HEMOGLOBIN 11.3 g/dl (14.0-18.0); MEAN CORPUSCULAR HGB CONC 32.8 g/dl (32.0-37.0); MEAN CORPUSCULAR VOLUME 91.2 fl (82.0-101.0); MEAN PLATELET VOLUME 10.1 fl (7.4-10.4); PLATELET COUNT 282 10^3/UL (140-415); RED BLOOD COUNT 3.77 10^6/ul (4.70-6.10); RED CELL DISTRIBUTION WIDTH 15.3 % (11.5-14.5)
[2018-11-20 17:21] LABS: ADD MAN DIFF? YES
[2018-11-20 17:35] LABS: ANION GAP 12 (5-13); BLOOD UREA NITROGEN 48 mg/dl (7-20); CALCIUM 9.1 mg/dl (8.4-10.2); CARBON DIOXIDE 27 mmol/L (21-31); CHLORIDE 98 mmol/L (97-110); CREATININE 6.87 mg/dl (0.61-1.24); GLUCOSE 266 mg/dl (70-220); POTASSIUM 3.9 mmol/L (3.5-5.1); SODIUM 137 mmol/L (135-144)
[2018-11-20 17:43] LABS: BAND NEUTROPHILS % (M) 1 % (0-4); BASOPHILS % (M) 1 % (0-2); BURR CELLS 1+ (0-0); EOSINOPHILS % (M) 4 % (0-7); GIANT THROMBO% (M) 12 % (0-0); LYMPHOCYTES #M 0.9 10^3/ul (0.8-2.9); LYMPHOCYTES % (M) 15 % (15-51); MONOCYTE #M 0.9 10^3/ul (0.3-0.9); MONOCYTES % (M) 15 % (0-11); OVALOCYTES 1+ (0-0); PLATELET ESTIMATE NORMAL; POIKILOCYTOSIS 1+ (0-0); REACTIVE LYMPHOCYTES #M 0.2 10^3/ul (0.0-0.0); REACTIVE LYMPHOCYTES% (M) 4 % (0-0); SEG NEUT #M 3.8 10^3/ul (1.6-7.5); SEGMENTED NEUTROPHILS (M) % 60 % (39-77); SMUDGE%M 33 % (0-0)
[2018-11-20] MEDS: SENNA TAB PO (21:00)
[2018-11-20] MEDS: FAMOTIDINE 20 MG TAB PO (21:02)
[2018-11-21] MEDS: ACCU-CHEK XX ×2 (02:00→21:49)
[2018-11-21] MEDS: ACETAMINOPHEN 325 MG TAB PO (07:52)
[2018-11-21] MEDS: CALCIUM ACETATE 667 MG CAP PO ×3 (07:59→17:33)
[2018-11-21] MEDS: INSULIN ASPART [NOVOLOG] 3 ML PEN SC ×4 (08:03→20:37)
[2018-11-21] MEDS: AMLODIPINE 2.5 MG TAB PO ×2 (09:00→20:26)
[2018-11-21] MEDS: APIXABAN 5 MG TABLET PO ×2 (09:25→20:25)
[2018-11-21] MEDS: DOCUSATE SODIUM 100 MG CAP PO (09:26)
[2018-11-21] MEDS: BENZONATATE 100 MG CAP PO ×2 (09:26→12:32)
[2018-11-21] MEDS: TAMSULOSIN (SR) 0.4 MG CAP PO (09:26)
[2018-11-21] MEDS: ASPIRIN (EC) 81 MG TAB PO (09:26)
[2018-11-21] MEDS ORDERED: HYDROmorphONE 4 MG TAB PO (14:30)
[2018-11-21 18:17] LABS: ADD UMIC YES; UR ASCORBIC ACID NEGATIVE (NEGATIVE); UR BACTERIA FEW /HPF (NONE SEEN); UR BILIRUBIN (Dip) NEGATIVE (NEGATIVE); UR BLOOD (Dip) 1+ mg/dL (NEGATIVE); UR CLARITY SLIGHTLY CLOUDY (CLEAR); UR COLOR YELLOW (YELLOW); UR GLUCOSE (Dip) 1+ mg/dL (NEGATIVE); UR KETONES (Dip) NEGATIVE (NEGATIVE); UR LEUKOCYTE ESTERASE (Dip) NEGATIVE Leu/ul (NEGATIVE); UR MUCUS FEW /HPF (NONE SEEN); UR NITRITE (Dip) NEGATIVE (NEGATIVE); UR RBC 2 /HPF (0-5); UR SPECIFIC GRAVITY (Dip) 1.016 (1.003-1.030); UR TOTAL PROTEIN (Dip) 3+ mg/dl (NEGATIVE); UR UROBILINOGEN (Dip) NEGATIVE (NEGATIVE); UR WBC 3 /HPF (0-5)
[2018-11-21] MEDS: FAMOTIDINE 20 MG TAB PO (20:25)
[2018-11-21] MEDS: SENNA TAB PO (20:26)
[2018-11-22] MEDS: INSULIN ASPART [NOVOLOG] 3 ML PEN SC ×4 (08:08→22:00)
[2018-11-22] MEDS: CALCIUM ACETATE 667 MG CAP PO ×3 (08:09→17:30)
[2018-11-22] MEDS: ASPIRIN (EC) 81 MG TAB PO (08:23)
[2018-11-22] MEDS: AMLODIPINE 2.5 MG TAB PO ×2 (08:23→22:09)
[2018-11-22] MEDS: TAMSULOSIN (SR) 0.4 MG CAP PO (08:23)
[2018-11-22] MEDS: APIXABAN 5 MG TABLET PO ×2 (08:24→22:08)
[2018-11-22] MEDS: ACCU-CHEK XX ×2 (09:00→22:00)
[2018-11-22] MEDS: ACETAMINOPHEN 325 MG TAB PO (09:09)
[2018-11-22] MEDS: GABAPENTIN 100 MG CAP PO (10:40)
[2018-11-22] MEDS: SENNA TAB PO (22:09)
[2018-11-22] MEDS: FAMOTIDINE 20 MG TAB PO (22:09)
[2018-11-23] MEDS: INSULIN ASPART [NOVOLOG] 3 ML PEN SC ×4 (07:35→21:52)
[2018-11-23] MEDS: CALCIUM ACETATE 667 MG CAP PO ×3 (08:08→18:29)
[2018-11-23] MEDS: ACCU-CHEK XX ×2 (09:00→21:00)
[2018-11-23] MEDS: TAMSULOSIN (SR) 0.4 MG CAP PO (09:20)
[2018-11-23] MEDS: ASPIRIN (EC) 81 MG TAB PO (09:20)
[2018-11-23] MEDS: AMLODIPINE 2.5 MG TAB PO ×2 (09:20→21:47)
[2018-11-23] MEDS: APIXABAN 5 MG TABLET PO ×2 (09:20→21:48)
[2018-11-23] MEDS: GABAPENTIN 100 MG CAP PO (09:20)
[2018-11-23] MEDS ORDERED: HYDROCODONE/APAP (5/325) TAB PO (20:00)
[2018-11-23] MEDS: SENNA TAB PO (21:46)
[2018-11-23] MEDS: FAMOTIDINE 20 MG TAB PO (21:46)
[2018-11-24 06:26] LABS: ADD MAN DIFF? NO
[2018-11-24 06:32] LABS: BASOPHIL # 0.1 10^3/ul (0.0-0.1); BASOPHILS % 1.3 % (0.0-2.0); EOSINOPHILS # 0.6 10^3/ul (0.0-0.5); EOSINOPHILS % 11.8 % (0.0-7.0); HEMATOCRIT 34.8 % (42.0-52.0); HEMOGLOBIN 11.4 g/dl (14.0-18.0); LYMPHOCYTES # 1.3 10^3/ul (0.8-2.9); LYMPHOCYTES % 27.5 % (15.0-51.0); MEAN CORPUSCULAR HEMOGLOBIN 30.2 pg (29.0-33.0); MEAN CORPUSCULAR HGB CONC 32.8 g/dl (32.0-37.0); MEAN CORPUSCULAR VOLUME 92.1 fl (82.0-101.0); MEAN PLATELET VOLUME 10.4 fl (7.4-10.4); MONOCYTE # 0.9 10^3/ul (0.3-0.9); MONOCYTES % 18.7 % (0.0-11.0); NEUTROPHIL # 1.9 10^3/ul (1.6-7.5); NEUTROPHILS % 40.3 % (39.0-77.0); PLATELET COUNT 324 10^3/UL (140-415); RED BLOOD COUNT 3.78 10^6/ul (4.70-6.10); RED CELL DISTRIBUTION WIDTH 14.9 % (11.5-14.5)
[2018-11-24 06:32] LABS: WHITE BLOOD COUNT 4.8 10^3/ul (4.8-10.8)
[2018-11-24 06:57] LABS: ANION GAP 13 (5-13); BLOOD UREA NITROGEN 63 mg/dl (7-20); CALCIUM 9.3 mg/dl (8.4-10.2); CARBON DIOXIDE 29 mmol/L (21-31); CHLORIDE 92 mmol/L (97-110); CREATININE 7.38 mg/dl (0.61-1.24); GLUCOSE 129 mg/dl (70-220); MAGNESIUM 2.5 mg/dl (1.7-2.5); PHOSPHORUS 5.6 mg/dl (2.5-4.9); POTASSIUM 4.2 mmol/L (3.5-5.1); SODIUM 134 mmol/L (135-144)
[2018-11-24] MEDS: INSULIN ASPART [NOVOLOG] 3 ML PEN SC ×4 (07:35→20:30)
[2018-11-24] MEDS: CALCIUM ACETATE 667 MG CAP PO ×3 (07:51→17:44)
[2018-11-24] MEDS: TAMSULOSIN (SR) 0.4 MG CAP PO (08:21)
[2018-11-24] MEDS: GABAPENTIN 100 MG CAP PO (08:21)
[2018-11-24] MEDS: APIXABAN 5 MG TABLET PO ×2 (08:21→20:20)
[2018-11-24] MEDS: ASPIRIN (EC) 81 MG TAB PO (08:21)
[2018-11-24] MEDS: ACCU-CHEK XX ×2 (08:22→21:00)
[2018-11-24] MEDS: AMLODIPINE 2.5 MG TAB PO ×2 (08:22→20:21)
[2018-11-24] MEDS: ALBUMIN HUMAN 25% 100 ML IV (18:03)
[2018-11-24] MEDS: SENNA TAB PO (20:19)
[2018-11-24] MEDS: FAMOTIDINE 20 MG TAB PO (20:20)
[2018-11-25] MEDS: INSULIN ASPART [NOVOLOG] 3 ML PEN SC ×4 (07:35→20:59)
[2018-11-25] MEDS: CALCIUM ACETATE 667 MG CAP PO ×3 (07:41→17:10)
[2018-11-25] MEDS: APIXABAN 5 MG TABLET PO ×2 (09:00→20:58)
[2018-11-25] MEDS: ASPIRIN (EC) 81 MG TAB PO (09:00)
[2018-11-25] MEDS: GABAPENTIN 100 MG CAP PO (09:00)
[2018-11-25] MEDS: AMLODIPINE 2.5 MG TAB PO ×2 (09:00→20:58)
[2018-11-25] MEDS: ACCU-CHEK XX ×2 (09:00→21:00)
[2018-11-25] MEDS: TAMSULOSIN (SR) 0.4 MG CAP PO (09:01)
[2018-11-25] MEDS: SENNA TAB PO (20:56)
[2018-11-25] MEDS: FAMOTIDINE 20 MG TAB PO (20:56)
[2018-11-26] MEDS: CALCIUM ACETATE 667 MG CAP PO ×3 (08:08→18:02)
[2018-11-26] MEDS: INSULIN ASPART [NOVOLOG] 3 ML PEN SC ×4 (08:10→21:00)
[2018-11-26] MEDS: ASPIRIN (EC) 81 MG TAB PO (08:37)
[2018-11-26] MEDS: AMLODIPINE 2.5 MG TAB PO ×2 (08:37→23:36)
[2018-11-26] MEDS: TAMSULOSIN (SR) 0.4 MG CAP PO (08:37)
[2018-11-26] MEDS: GABAPENTIN 100 MG CAP PO (08:37)
[2018-11-26] MEDS: APIXABAN 5 MG TABLET PO ×2 (08:38→23:39)
[2018-11-26] MEDS: ACCU-CHEK XX ×2 (09:00→21:00)
[2018-11-26] MEDS: LIDOCAINE 4% CR TOP (21:02)
[2018-11-26] MEDS: FAMOTIDINE 20 MG TAB PO (23:38)
[2018-11-26] MEDS: SENNA TAB PO (23:39)
[2018-11-27] MEDS: INSULIN ASPART [NOVOLOG] 3 ML PEN SC ×4 (07:56→21:07)
[2018-11-27] MEDS: ASPIRIN (EC) 81 MG TAB PO (08:30)
[2018-11-27] MEDS: GABAPENTIN 100 MG CAP PO (08:30)
[2018-11-27] MEDS: CALCIUM ACETATE 667 MG CAP PO ×3 (08:30→17:45)
[2018-11-27] MEDS: APIXABAN 5 MG TABLET PO ×2 (08:31→21:09)
[2018-11-27] MEDS: TAMSULOSIN (SR) 0.4 MG CAP PO (08:31)
[2018-11-27] MEDS: AMLODIPINE 2.5 MG TAB PO ×2 (08:31→21:08)
[2018-11-27] MEDS: ACCU-CHEK XX ×2 (08:32→21:00)
[2018-11-27] MEDS: FAMOTIDINE 20 MG TAB PO (21:07)
[2018-11-27] MEDS: SENNA TAB PO (21:09)
[2018-11-28 06:33] LABS: ADD MAN DIFF? NO
[2018-11-28 06:39] LABS: BASOPHIL # 0.1 10^3/ul (0.0-0.1); BASOPHILS % 1.4 % (0.0-2.0); EOSINOPHILS # 0.6 10^3/ul (0.0-0.5); EOSINOPHILS % 7.6 % (0.0-7.0); HEMATOCRIT 37.6 % (42.0-52.0); LYMPHOCYTES # 1.8 10^3/ul (0.8-2.9); LYMPHOCYTES % 23.8 % (15.0-51.0); MEAN CORPUSCULAR HEMOGLOBIN 29.7 pg (29.0-33.0); MEAN CORPUSCULAR HGB CONC 31.9 g/dl (32.0-37.0); MEAN CORPUSCULAR VOLUME 93.1 fl (82.0-101.0); MEAN PLATELET VOLUME 10.4 fl (7.4-10.4); MONOCYTE # 1.3 10^3/ul (0.3-0.9); MONOCYTES % 16.9 % (0.0-11.0); NEUTROPHIL # 3.7 10^3/ul (1.6-7.5); NEUTROPHILS % 49.9 % (39.0-77.0); PLATELET COUNT 354 10^3/UL (140-415); RED BLOOD COUNT 4.04 10^6/ul (4.70-6.10); RED CELL DISTRIBUTION WIDTH 15.1 % (11.5-14.5)
[2018-11-28 06:39] LABS: WHITE BLOOD COUNT 7.4 10^3/ul (4.8-10.8)
[2018-11-28 06:56] LABS: HEMOGLOBIN A1C 7.4 % (0-5.9)
[2018-11-28 07:11] LABS: ALANINE AMINOTRANSFERASE 13 IU/L (13-69); ALBUMIN/GLOBULIN RATIO 0.93; ALKALINE PHOSPHATASE 149 IU/L (42-121); ANION GAP 12 (5-13); ASPARTATE AMINO TRANSFERASE 22 IU/L (15-46); BILIRUBIN,INDIRECT 0.2 mg/dl (0-1.1); BILIRUBIN,TOTAL 0.2 mg/dl (0.2-1.3); BLOOD UREA NITROGEN 47 mg/dl (7-20); CALCIUM 9.8 mg/dl (8.4-10.2); CARBON DIOXIDE 29 mmol/L (21-31); CHLORIDE 97 mmol/L (97-110); GLUCOSE 144 mg/dl (70-220); POTASSIUM 4.2 mmol/L (3.5-5.1); SODIUM 138 mmol/L (135-144); TOTAL PROTEIN 8.3 g/dl (6.1-8.1)
[2018-11-28] MEDS: CALCIUM ACETATE 667 MG CAP PO ×3 (07:42→17:43)
[2018-11-28] MEDS: INSULIN ASPART [NOVOLOG] 3 ML PEN SC ×4 (07:45→21:00)
[2018-11-28] MEDS: TAMSULOSIN (SR) 0.4 MG CAP PO (08:46)
[2018-11-28] MEDS: GABAPENTIN 100 MG CAP PO (08:47)
[2018-11-28] MEDS: ASPIRIN (EC) 81 MG TAB PO (08:47)
[2018-11-28] MEDS: APIXABAN 5 MG TABLET PO ×2 (08:47→20:37)
[2018-11-28] MEDS: ACCU-CHEK XX ×2 (08:48→21:56)
[2018-11-28] MEDS: AMLODIPINE 2.5 MG TAB PO ×2 (08:48→20:36)
[2018-11-28] MEDS: FAMOTIDINE 20 MG TAB PO (20:35)
[2018-11-28] MEDS: SENNA TAB PO (20:36)
[2018-11-29] MEDS: INSULIN ASPART [NOVOLOG] 3 ML PEN SC ×4 (07:35→21:00)
[2018-11-29] MEDS: CALCIUM ACETATE 667 MG CAP PO ×3 (07:46→17:33)
[2018-11-29] MEDS: ACCU-CHEK XX ×2 (09:00→21:39)
[2018-11-29] MEDS: APIXABAN 5 MG TABLET PO ×2 (09:22→21:37)
[2018-11-29] MEDS: TAMSULOSIN (SR) 0.4 MG CAP PO (09:22)
[2018-11-29] MEDS: MEGESTROL (40 MG/ML) 10ML CUP PO ×2 (09:22→21:38)
[2018-11-29] MEDS: GABAPENTIN 100 MG CAP PO (09:22)
[2018-11-29] MEDS: AMLODIPINE 2.5 MG TAB PO ×2 (09:22→21:37)
[2018-11-29] MEDS: ASPIRIN (EC) 81 MG TAB PO (09:23)
[2018-11-29] MEDS: REPAGLINIDE 1 MG TAB PO ×2 (12:04→17:33)
[2018-11-29] MEDS: LACTULOSE 30ML CUP PO (15:15)
[2018-11-29] MEDS: SENNA TAB PO (21:37)
[2018-11-29] MEDS: FAMOTIDINE 20 MG TAB PO (21:37)
[2018-11-30] MEDS: LACTULOSE 30ML CUP PO (02:30)
[2018-11-30] MEDS: INSULIN ASPART [NOVOLOG] 3 ML PEN SC ×4 (07:35→20:47)
[2018-11-30] MEDS: REPAGLINIDE 1 MG TAB PO ×3 (07:46→17:24)
[2018-11-30] MEDS: CALCIUM ACETATE 667 MG CAP PO ×3 (07:47→17:24)
[2018-11-30] MEDS: APIXABAN 5 MG TABLET PO ×2 (08:57→20:48)
[2018-11-30] MEDS: MEGESTROL (40 MG/ML) 10ML CUP PO ×2 (08:57→20:47)
[2018-11-30] MEDS: GABAPENTIN 100 MG CAP PO (08:57)
[2018-11-30] MEDS: TAMSULOSIN (SR) 0.4 MG CAP PO (08:57)
[2018-11-30] MEDS: ASPIRIN (EC) 81 MG TAB PO (08:57)
[2018-11-30] MEDS: AMLODIPINE 2.5 MG TAB PO ×2 (08:58→20:49)
[2018-11-30] MEDS: ACCU-CHEK XX ×2 (09:00→21:00)
[2018-11-30] MEDS: FAMOTIDINE 20 MG TAB PO (20:47)
[2018-11-30] MEDS: SENNA TAB PO (20:47)
[2018-12-01] MEDS: INSULIN ASPART [NOVOLOG] 3 ML PEN SC ×4 (07:35→20:14)
[2018-12-01] MEDS: CALCIUM ACETATE 667 MG CAP PO ×3 (07:42→17:35)
[2018-12-01] MEDS: REPAGLINIDE 1 MG TAB PO ×3 (07:42→17:05)
[2018-12-01] MEDS: TAMSULOSIN (SR) 0.4 MG CAP PO (08:52)
[2018-12-01] MEDS: GABAPENTIN 100 MG CAP PO (08:52)
[2018-12-01] MEDS: AMLODIPINE 2.5 MG TAB PO ×2 (08:52→20:13)
[2018-12-01] MEDS: MEGESTROL (40 MG/ML) 10ML CUP PO ×2 (08:53→20:08)
[2018-12-01] MEDS: APIXABAN 5 MG TABLET PO ×2 (08:53→20:10)
[2018-12-01] MEDS: ASPIRIN (EC) 81 MG TAB PO (08:53)
[2018-12-01] MEDS: ACCU-CHEK XX ×2 (09:00→20:19)
[2018-12-01] MEDS: SENNA TAB PO (20:09)
[2018-12-01] MEDS: FAMOTIDINE 20 MG TAB PO (20:12)
[2018-12-02] MEDS: INSULIN ASPART [NOVOLOG] 3 ML PEN SC (07:35)
[2018-12-02] MEDS: CALCIUM ACETATE 667 MG CAP PO ×2 (08:07→11:45)
[2018-12-02] MEDS: REPAGLINIDE 1 MG TAB PO ×2 (08:07→11:45)
[2018-12-02] MEDS: MEGESTROL (40 MG/ML) 10ML CUP PO (09:28)
[2018-12-02] MEDS: TAMSULOSIN (SR) 0.4 MG CAP PO (09:28)
[2018-12-02] MEDS: ASPIRIN (EC) 81 MG TAB PO (09:28)
[2018-12-02] MEDS: GABAPENTIN 100 MG CAP PO (09:28)
[2018-12-02] MEDS: APIXABAN 5 MG TABLET PO (09:29)
[2018-12-02] MEDS: ACCU-CHEK XX (09:30)
[2018-12-02] MEDS: AMLODIPINE 2.5 MG TAB PO (09:30)
== END 2018-12-02 12:30 | disposition home health service (06) | DRG 291 ==
LOC: VRC 22:39
PROC: F07Z5ZZ Bed Mobility Treatment (ICD-10-PCS; principal; 2018-11-18)
PROC: F08Z2ZZ Grooming/Personal Hygiene Treatment (ICD-10-PCS; 2018-11-18)
PROC: 5A1D70Z Performance of Urinary Filtration, Intermittent, Less than 6 Hours Per Day (ICD-10-PCS; 2018-11-19)
PROC: 5A1D70Z Performance of Urinary Filtration, Intermittent, Less than 6 Hours Per Day (ICD-10-PCS; 2018-11-22)
PROC: 5A1D70Z Performance of Urinary Filtration, Intermittent, Less than 6 Hours Per Day (ICD-10-PCS; 2018-11-24)
PROC: 5A1D70Z Performance of Urinary Filtration, Intermittent, Less than 6 Hours Per Day (ICD-10-PCS; 2018-11-26)
PROC: 5A1D70Z Performance of Urinary Filtration, Intermittent, Less than 6 Hours Per Day (ICD-10-PCS; 2018-11-29)
PROC: 5A1D70Z Performance of Urinary Filtration, Intermittent, Less than 6 Hours Per Day (ICD-10-PCS; 2018-12-01)
DX: I13.2 Hypertensive heart and chronic kidney disease with heart failure and with stage 5 chronic kidney disease, or end stage renal disease (principal); I50.41 Acute combined systolic (congestive) and diastolic (congestive) heart failure; N18.6 End stage renal disease; J18.9 Pneumonia, unspecified organism; G92 Toxic encephalopathy; E11.22 Type 2 diabetes mellitus with diabetic chronic kidney disease; I25.10 Atherosclerotic heart disease of native coronary artery without angina pectoris; Z79.4 Long term (current) use of insulin; Z95.1 Presence of aortocoronary bypass graft; Z95.0 Presence of cardiac pacemaker; R53.81 Other malaise; I25.5 Ischemic cardiomyopathy; Z79.82 Long term (current) use of aspirin; M25.551 Pain in right hip; R50.9 Fever, unspecified
CPT/HCPCS: 71045; 72170; 73520; 80048; 80053; 81001; 82962; 83036; 83735; 84100; 85025; 87040-91; 87081; 87086; 90935; 92507; 92523; 93970; 97110; 97112; 97116; 97163; 97167; 97530; 97535; 97542

== ENCOUNTER 2018-12-15 07:57 | Observation (INO) | payer MEDICARE, OTHER ==
[2018-12-15 08:47] LABS: ADD MAN DIFF? NO
[2018-12-15 08:51] LABS: WHITE BLOOD COUNT 7.7 10^3/ul (4.8-10.8)
[2018-12-15 08:51] LABS: BASOPHIL # 0.1 10^3/ul (0.0-0.1); EOSINOPHILS # 0.8 10^3/ul (0.0-0.5); EOSINOPHILS % 10.3 % (0.0-7.0); HEMATOCRIT 35.1 % (42.0-52.0); HEMOGLOBIN 11.2 g/dl (14.0-18.0); LYMPHOCYTES # 2.1 10^3/ul (0.8-2.9); LYMPHOCYTES % 27.2 % (15.0-51.0); MEAN CORPUSCULAR HEMOGLOBIN 29.6 pg (29.0-33.0); MEAN CORPUSCULAR HGB CONC 31.9 g/dl (32.0-37.0); MEAN CORPUSCULAR VOLUME 92.6 fl (82.0-101.0); MEAN PLATELET VOLUME 10.9 fl (7.4-10.4); MONOCYTES % 13.1 % (0.0-11.0); NEUTROPHIL # 3.7 10^3/ul (1.6-7.5); PLATELET COUNT 270 10^3/UL (140-415); RED BLOOD COUNT 3.79 10^6/ul (4.70-6.10)
[2018-12-15] MEDS: ASPIRIN 325 MG TAB PO (09:18)
[2018-12-15 10:19] LABS: INR 1.15; PROTIME 14.8 Sec (11.9-14.9); PT RATIO 1.2
[2018-12-15 10:20] LABS: PARTIAL THROMBOPLASTIN TIME 29.6 Sec (23.0-35.0)
[2018-12-15 10:28] LABS: ALANINE AMINOTRANSFERASE 28 IU/L (13-69); ALBUMIN 3.6 g/dl (3.3-4.9); ALBUMIN/GLOBULIN RATIO 0.81; ALKALINE PHOSPHATASE 159 IU/L (42-121); ANION GAP 11 (5-13); ASPARTATE AMINO TRANSFERASE 28 IU/L (15-46); BILIRUBIN,INDIRECT 0.2 mg/dl (0-1.1); BILIRUBIN,TOTAL 0.2 mg/dl (0.2-1.3); BLOOD UREA NITROGEN 51 mg/dl (7-20); CALCIUM 9.9 mg/dl (8.4-10.2); CARBON DIOXIDE 29 mmol/L (21-31); CHLORIDE 104 mmol/L (97-110); CREATINE KINASE 21 IU/L (23-200); CREATININE 5.06 mg/dl (0.61-1.24); GLUCOSE 127 mg/dl (70-220); SODIUM 144 mmol/L (135-144)
[2018-12-15 10:30] LABS: POTASSIUM 5.5 mmol/L (3.5-5.1)
[2018-12-15 10:39] LABS: CK INDEX 2.2; CK-MB 0.47 ng/ml (0.0-2.4); TROPONIN-I 0.036 ng/ml (0.000-0.120)
[2018-12-15] MEDS ORDERED: ACETAMINOPHEN 325 MG TAB PO ×2 (11:00→13:30)
[2018-12-15] MEDS ORDERED: ONDANSETRON 4 MG INJ IV (11:00)
[2018-12-15] MEDS: CA CHLORIDE 10% 10 ML SYRINGE IV (11:29)
[2018-12-15] MEDS: NA BICARBONATE 8.4% 50 ML SYG IV (11:29)
[2018-12-15] MEDS ORDERED: DEXTROSE 50% 50 ML SYRINGE IV ×2 (13:30)
[2018-12-15] MEDS ORDERED: GLUCAGON 1 MG INJ IM (13:30)
[2018-12-15] MEDS ORDERED: GLUCOSE GEL 15 GRAM TUBE BUCCAL (13:30)
[2018-12-15] MEDS ORDERED: GLUCOSE GEL 15 GRAM TUBE PO ×2 (13:30)
[2018-12-15] MEDS: INSULIN ASPART [NOVOLOG] 3 ML PEN SC ×2 (17:25→21:00)
[2018-12-15] MEDS: CALCIUM/VITAMIN D (500/200) TAB PO ×2 (17:30→22:12)
[2018-12-15] MEDS: ALBUTEROL 0.5% (NEB) 2.5 MG/0.5 ML AMP INH (17:30)
[2018-12-15] MEDS ORDERED: REPAGLINIDE 1 MG TAB PO (18:00)
[2018-12-15 19:05] LABS: TROPONIN-I 0.032 ng/ml (0.000-0.120)
[2018-12-15] MEDS: AMLODIPINE 2.5 MG TAB PO (20:22)
[2018-12-15] MEDS ORDERED: hydrALAzine 20 MG INJ IV (20:30)
[2018-12-15] MEDS ORDERED: LATANOPROSTENE BUNOD OP (21:00)
[2018-12-15 21:53] LABS: HEPATITIS B SURFACE ANTIGEN NEGATIVE (NEGATIVE)
[2018-12-15] MEDS: NYSTATIN SUSP 5 ML CUP PO (22:11)
[2018-12-15] MEDS: FAMOTIDINE 20 MG TAB PO (22:11)
[2018-12-15] MEDS: APIXABAN 5 MG TABLET PO (22:12)
[2018-12-15] MEDS: ATORVASTATIN 80 MG TAB PO (22:12)
[2018-12-15] MEDS: VYZULTA EYE BOTH EYES (23:15)
[2018-12-16 06:50] LABS: TROPONIN-I 0.042 ng/ml (0.000-0.120)
[2018-12-16] MEDS: INSULIN ASPART [NOVOLOG] 3 ML PEN SC ×4 (08:00→21:18)
[2018-12-16] MEDS: REPAGLINIDE 1 MG TAB PO ×3 (08:22→18:12)
[2018-12-16] MEDS: TAMSULOSIN (SR) 0.4 MG CAP PO (09:47)
[2018-12-16] MEDS: APIXABAN 5 MG TABLET PO ×2 (09:47→21:09)
[2018-12-16] MEDS: AMLODIPINE 2.5 MG TAB PO ×2 (09:47→21:09)
[2018-12-16] MEDS: NYSTATIN SUSP 5 ML CUP PO ×4 (09:48→21:00)
[2018-12-16] MEDS: CALCIUM/VITAMIN D (500/200) TAB PO ×3 (09:48→21:08)
[2018-12-16] MEDS: ASPIRIN (EC) 81 MG TAB PO (09:48)
[2018-12-16] MEDS: FAMOTIDINE 20 MG TAB PO (21:08)
[2018-12-16] MEDS: ATORVASTATIN 80 MG TAB PO (21:09)
[2018-12-16] MEDS: VYZULTA EYE BOTH EYES (21:10)
[2018-12-17 06:23] LABS: ADD MAN DIFF? NO
[2018-12-17 06:27] LABS: BASOPHIL # 0.1 10^3/ul (0.0-0.1); EOSINOPHILS # 0.7 10^3/ul (0.0-0.5); HEMATOCRIT 32.6 % (42.0-52.0); HEMOGLOBIN 10.5 g/dl (14.0-18.0); LYMPHOCYTES # 1.6 10^3/ul (0.8-2.9); LYMPHOCYTES % 22.1 % (15.0-51.0); MEAN CORPUSCULAR HEMOGLOBIN 29.6 pg (29.0-33.0); MEAN CORPUSCULAR HGB CONC 32.2 g/dl (32.0-37.0); MEAN CORPUSCULAR VOLUME 91.8 fl (82.0-101.0); MEAN PLATELET VOLUME 11.1 fl (7.4-10.4); MONOCYTE # 1.1 10^3/ul (0.3-0.9); NEUTROPHIL # 3.7 10^3/ul (1.6-7.5); NEUTROPHILS % 51.6 % (39.0-77.0); PLATELET COUNT 259 10^3/UL (140-415); RED BLOOD COUNT 3.55 10^6/ul (4.70-6.10); RED CELL DISTRIBUTION WIDTH 15.9 % (11.5-14.5)
[2018-12-17 06:27] LABS: WHITE BLOOD COUNT 7.1 10^3/ul (4.8-10.8)
[2018-12-17 07:06] LABS: ANION GAP 9 (5-13); BLOOD UREA NITROGEN 54 mg/dl (7-20); CALCIUM 9.7 mg/dl (8.4-10.2); CARBON DIOXIDE 30 mmol/L (21-31); CHLORIDE 105 mmol/L (97-110); CREATININE 4.71 mg/dl (0.61-1.24); GLUCOSE 136 mg/dl (70-220); MAGNESIUM 2.2 mg/dl (1.7-2.5); PHOSPHORUS 2.9 mg/dl (2.5-4.9); SODIUM 144 mmol/L (135-144)
[2018-12-17] MEDS: REPAGLINIDE 1 MG TAB PO ×3 (07:32→17:08)
[2018-12-17] MEDS: INSULIN ASPART [NOVOLOG] 3 ML PEN SC ×3 (07:32→17:08)
[2018-12-17] MEDS: NYSTATIN SUSP 5 ML CUP PO ×3 (08:45→17:08)
[2018-12-17] MEDS: APIXABAN 5 MG TABLET PO (08:45)
[2018-12-17] MEDS: TAMSULOSIN (SR) 0.4 MG CAP PO (08:45)
[2018-12-17] MEDS: CALCIUM/VITAMIN D (500/200) TAB PO ×2 (08:45→12:40)
[2018-12-17] MEDS: ASPIRIN (EC) 81 MG TAB PO (08:46)
[2018-12-17] MEDS: AMLODIPINE 2.5 MG TAB PO ×2 (08:47→17:08)
== END 2018-12-17 17:30 | disposition home or self-care (01) ==
LOC: E/R 07:57 → 6WM 11:03
PROVIDERS: Internal Medicine
DX: R07.9 Chest pain, unspecified (principal); I13.2 Hypertensive heart and chronic kidney disease with heart failure and with stage 5 chronic kidney disease, or end stage renal disease; E11.22 Type 2 diabetes mellitus with diabetic chronic kidney disease; N18.6 End stage renal disease; I50.9 Heart failure, unspecified; I25.5 Ischemic cardiomyopathy; Z99.2 Dependence on renal dialysis; Z79.4 Long term (current) use of insulin; K21.9 Gastro-esophageal reflux disease without esophagitis; N40.0 Benign prostatic hyperplasia without lower urinary tract symptoms; I25.10 Atherosclerotic heart disease of native coronary artery without angina pectoris; Z95.1 Presence of aortocoronary bypass graft; H40.9 Unspecified glaucoma; R53.81 Other malaise; J98.4 Other disorders of lung; Z79.01 Long term (current) use of anticoagulants
CPT/HCPCS: 36415; 71045; 80048; 80053; 82550; 82553; 82962; 83735; 84100; 84484; 85025; 85610; 85730; 87340; 90935; 93005; 99285-25; G0378

== ENCOUNTER 2019-01-23 22:30 | Inpatient (IN) | payer MEDICARE, OTHER ==
[2019-01-23 23:56] LABS: ADD MAN DIFF? NO
[2019-01-24 00:01] LABS: WHITE BLOOD COUNT 5.5 10^3/ul (4.8-10.8)
[2019-01-24 00:02] LABS: BASOPHIL # 0.1 10^3/ul (0.0-0.1); BASOPHILS % 1.1 % (0.0-2.0); EOSINOPHILS # 0.6 10^3/ul (0.0-0.5); EOSINOPHILS % 11.6 % (0.0-7.0); HEMATOCRIT 30.4 % (42.0-52.0); HEMOGLOBIN 9.9 g/dl (14.0-18.0); LYMPHOCYTES # 1.3 10^3/ul (0.8-2.9); LYMPHOCYTES % 23.3 % (15.0-51.0); MEAN CORPUSCULAR HEMOGLOBIN 31.2 pg (29.0-33.0); MEAN CORPUSCULAR HGB CONC 32.6 g/dl (32.0-37.0); MEAN CORPUSCULAR VOLUME 95.9 fl (82.0-101.0); MEAN PLATELET VOLUME 11.4 fl (7.4-10.4); MONOCYTE # 0.6 10^3/ul (0.3-0.9); MONOCYTES % 11.4 % (0.0-11.0); NEUTROPHIL # 2.9 10^3/ul (1.6-7.5); NEUTROPHILS % 52.4 % (39.0-77.0); PLATELET COUNT 183 10^3/UL (140-415); RED BLOOD COUNT 3.17 10^6/ul (4.70-6.10); RED CELL DISTRIBUTION WIDTH 17.7 % (11.5-14.5)
[2019-01-24 00:20] LABS: ALANINE AMINOTRANSFERASE 16 IU/L (13-69); ALBUMIN 3.5 g/dl (3.3-4.9); ALBUMIN/GLOBULIN RATIO 0.89; ALKALINE PHOSPHATASE 198 IU/L (42-121); ANION GAP 9 (5-13); ASPARTATE AMINO TRANSFERASE 19 IU/L (15-46); BILIRUBIN,INDIRECT 0.4 mg/dl (0-1.1); BILIRUBIN,TOTAL 0.4 mg/dl (0.2-1.3); BLOOD UREA NITROGEN 50 mg/dl (7-20); CALCIUM 9.1 mg/dl (8.4-10.2); CARBON DIOXIDE 31 mmol/L (21-31); CHLORIDE 101 mmol/L (97-110); GLUCOSE 107 mg/dl (70-220); POTASSIUM 4.4 mmol/L (3.5-5.1); SODIUM 141 mmol/L (135-144); TOTAL PROTEIN 7.4 g/dl (6.1-8.1)
[2019-01-24 00:32] LABS: TROPONIN-I 0.027 ng/ml (0.000-0.120)
[2019-01-24 00:48] LABS: B-TYPE NATRIURETIC PEPTIDE 38600 PG/ML (0-450)
[2019-01-24 07:41] LABS: CK-MB 0.56 ng/ml (0.0-2.4); TROPONIN-I 0.029 ng/ml (0.000-0.120)
[2019-01-24 07:57] LABS: CREATINE KINASE < 20 IU/L (23-200)
[2019-01-24] MEDS ORDERED: DEXTROSE 50% 50 ML SYRINGE IV ×2 (08:30)
[2019-01-24] MEDS ORDERED: GLUCAGON 1 MG INJ IM (08:30)
[2019-01-24] MEDS ORDERED: GLUCOSE GEL 15 GRAM TUBE PO ×2 (08:30)
[2019-01-24] MEDS ORDERED: hydrALAzine 20 MG INJ IV (08:30)
[2019-01-24] MEDS ORDERED: GLUCOSE GEL 15 GRAM TUBE BUCCAL (08:30)
[2019-01-24] MEDS ORDERED: ASPIRIN (EC) 81 MG TAB PO (09:00)
[2019-01-24] MEDS: ATORVASTATIN 80 MG TAB PO (09:06)
[2019-01-24] MEDS: TAMSULOSIN (SR) 0.4 MG CAP PO (09:07)
[2019-01-24] MEDS: FAMOTIDINE 20 MG TAB PO ×2 (09:07→20:33)
[2019-01-24] MEDS: CALCIUM/VITAMIN D (500/200) TAB PO ×3 (09:07→20:33)
[2019-01-24] MEDS: AMLODIPINE 2.5 MG TAB PO (09:07)
[2019-01-24] MEDS: ASPIRIN (EC) 81 MG TAB PO (09:07)
[2019-01-24 10:41] LABS: HEPATITIS B SURFACE ANTIGEN NEGATIVE (NEGATIVE)
[2019-01-24] MEDS ORDERED: REPAGLINIDE 1 MG TAB PO (11:20)
[2019-01-24] MEDS: INSULIN ASPART [NOVOLOG] 3 ML PEN SC ×3 (11:50→20:40)
[2019-01-24 12:09] LABS: CK-MB 0.71 ng/ml (0.0-2.4)
[2019-01-24 12:18] LABS: PROCALCITONIN 0.09 ng/mL (0.00-0.10)
[2019-01-24 12:30] LABS: CREATINE KINASE < 20 IU/L (23-200)
[2019-01-24] MEDS: GABAPENTIN 100 MG CAP PO (20:33)
[2019-01-25] MEDS: INSULIN ASPART [NOVOLOG] 3 ML PEN SC ×4 (07:41→21:00)
[2019-01-25 08:17] LABS: ADD MAN DIFF? NO
[2019-01-25 08:23] LABS: BASOPHIL # 0.1 10^3/ul (0.0-0.1); BASOPHILS % 1.5 % (0.0-2.0); EOSINOPHILS # 0.7 10^3/ul (0.0-0.5); EOSINOPHILS % 12.8 % (0.0-7.0); HEMATOCRIT 29.2 % (42.0-52.0); HEMOGLOBIN 9.5 g/dl (14.0-18.0); LYMPHOCYTES # 1.2 10^3/ul (0.8-2.9); LYMPHOCYTES % 23.5 % (15.0-51.0); MEAN CORPUSCULAR HGB CONC 32.5 g/dl (32.0-37.0); MEAN CORPUSCULAR VOLUME 95.4 fl (82.0-101.0); MEAN PLATELET VOLUME 11.3 fl (7.4-10.4); MONOCYTE # 0.7 10^3/ul (0.3-0.9); NEUTROPHIL # 2.5 10^3/ul (1.6-7.5); PLATELET COUNT 176 10^3/UL (140-415); RED BLOOD COUNT 3.06 10^6/ul (4.70-6.10); RED CELL DISTRIBUTION WIDTH 17.4 % (11.5-14.5)
[2019-01-25 08:23] LABS: WHITE BLOOD COUNT 5.2 10^3/ul (4.8-10.8)
[2019-01-25] MEDS: [UNRECOGNIZED DRUG - OTHER] XX ×2 (08:30→16:30)
[2019-01-25 08:58] LABS: PHOSPHORUS 3.8 mg/dl (2.5-4.9)
[2019-01-25] MEDS: CALCIUM/VITAMIN D (500/200) TAB PO ×3 (09:06→21:07)
[2019-01-25] MEDS: AMLODIPINE 2.5 MG TAB PO (09:06)
[2019-01-25] MEDS: ATORVASTATIN 80 MG TAB PO (09:06)
[2019-01-25] MEDS: ASPIRIN (EC) 81 MG TAB PO (09:07)
[2019-01-25] MEDS: TAMSULOSIN (SR) 0.4 MG CAP PO (09:07)
[2019-01-25] MEDS: FAMOTIDINE 20 MG TAB PO ×2 (09:07→21:07)
[2019-01-25 09:26] LABS: PROCALCITONIN 0.08 ng/mL (0.00-0.10)
[2019-01-25] MEDS: BALSAM PERU/CASTOR OIL 60 GM TUBE TOP (21:07)
[2019-01-25] MEDS: GABAPENTIN 100 MG CAP PO (21:07)
[2019-01-25] MEDS: VYZULTA BOTH EYES (21:08)
[2019-01-26] MEDS: [UNRECOGNIZED DRUG - OTHER] XX (00:30)
[2019-01-26 07:29] LABS: ADD MAN DIFF? NO
[2019-01-26 07:39] LABS: WHITE BLOOD COUNT 5.1 10^3/ul (4.8-10.8)
[2019-01-26 07:39] LABS: BASOPHIL # 0.1 10^3/ul (0.0-0.1); BASOPHILS % 1.2 % (0.0-2.0); EOSINOPHILS # 0.8 10^3/ul (0.0-0.5); EOSINOPHILS % 14.8 % (0.0-7.0); HEMATOCRIT 31.1 % (42.0-52.0); HEMOGLOBIN 9.9 g/dl (14.0-18.0); LYMPHOCYTES # 1.5 10^3/ul (0.8-2.9); LYMPHOCYTES % 29.3 % (15.0-51.0); MEAN CORPUSCULAR HEMOGLOBIN 30.6 pg (29.0-33.0); MEAN CORPUSCULAR HGB CONC 31.8 g/dl (32.0-37.0); MEAN PLATELET VOLUME 11.3 fl (7.4-10.4); MONOCYTE # 0.7 10^3/ul (0.3-0.9); MONOCYTES % 12.9 % (0.0-11.0); NEUTROPHIL # 2.1 10^3/ul (1.6-7.5); NEUTROPHILS % 41.6 % (39.0-77.0); PLATELET COUNT 184 10^3/UL (140-415); RED BLOOD COUNT 3.24 10^6/ul (4.70-6.10); RED CELL DISTRIBUTION WIDTH 16.8 % (11.5-14.5)
[2019-01-26] MEDS: INSULIN ASPART [NOVOLOG] 3 ML PEN SC ×4 (07:55→20:53)
[2019-01-26 08:01] LABS: MAGNESIUM 2.1 mg/dl (1.7-2.5)
[2019-01-26 08:01] LABS: PHOSPHORUS 4.1 mg/dl (2.5-4.9)
[2019-01-26] MEDS: CALCIUM/VITAMIN D (500/200) TAB PO ×3 (08:08→20:40)
[2019-01-26] MEDS: ATORVASTATIN 80 MG TAB PO ×2 (08:08→20:41)
[2019-01-26] MEDS: TAMSULOSIN (SR) 0.4 MG CAP PO (08:08)
[2019-01-26] MEDS: AMLODIPINE 2.5 MG TAB PO (08:08)
[2019-01-26] MEDS: ASPIRIN (EC) 81 MG TAB PO (08:08)
[2019-01-26] MEDS: FAMOTIDINE 20 MG TAB PO ×2 (08:09→20:40)
[2019-01-26] MEDS: BALSAM PERU/CASTOR OIL 60 GM TUBE TOP ×2 (08:09→20:41)
[2019-01-26] MEDS: GABAPENTIN 100 MG CAP PO (20:40)
[2019-01-26] MEDS: VYZULTA BOTH EYES (20:55)
[2019-01-27] MEDS: INSULIN ASPART [NOVOLOG] 3 ML PEN SC (07:55)
[2019-01-27] MEDS: AMLODIPINE 2.5 MG TAB PO (09:08)
[2019-01-27] MEDS: ASPIRIN (EC) 81 MG TAB PO (09:08)
[2019-01-27] MEDS: FAMOTIDINE 20 MG TAB PO (09:08)
[2019-01-27] MEDS: TAMSULOSIN (SR) 0.4 MG CAP PO (09:08)
[2019-01-27 09:09] LABS: ADD MAN DIFF? NO
[2019-01-27] MEDS: BALSAM PERU/CASTOR OIL 60 GM TUBE TOP (09:09)
[2019-01-27] MEDS: CALCIUM/VITAMIN D (500/200) TAB PO (09:09)
[2019-01-27 09:12] LABS: WHITE BLOOD COUNT 5.5 10^3/ul (4.8-10.8)
[2019-01-27 09:12] LABS: BASOPHIL # 0.1 10^3/ul (0.0-0.1); BASOPHILS % 1.3 % (0.0-2.0); EOSINOPHILS # 0.7 10^3/ul (0.0-0.5); EOSINOPHILS % 13.1 % (0.0-7.0); HEMATOCRIT 31.4 % (42.0-52.0); HEMOGLOBIN 10.3 g/dl (14.0-18.0); LYMPHOCYTES # 1.6 10^3/ul (0.8-2.9); LYMPHOCYTES % 29.1 % (15.0-51.0); MEAN CORPUSCULAR HEMOGLOBIN 31.3 pg (29.0-33.0); MEAN CORPUSCULAR HGB CONC 32.8 g/dl (32.0-37.0); MEAN CORPUSCULAR VOLUME 95.4 fl (82.0-101.0); MEAN PLATELET VOLUME 10.8 fl (7.4-10.4); MONOCYTE # 0.6 10^3/ul (0.3-0.9); MONOCYTES % 11.5 % (0.0-11.0); NEUTROPHIL # 2.5 10^3/ul (1.6-7.5); NEUTROPHILS % 44.8 % (39.0-77.0); PLATELET COUNT 201 10^3/UL (140-415); RED BLOOD COUNT 3.29 10^6/ul (4.70-6.10); RED CELL DISTRIBUTION WIDTH 16.5 % (11.5-14.5)
[2019-01-27 09:30] LABS: ANION GAP 7 (5-13); BLOOD UREA NITROGEN 23 mg/dl (7-20); CALCIUM 9.2 mg/dl (8.4-10.2); CARBON DIOXIDE 32 mmol/L (21-31); CHLORIDE 98 mmol/L (97-110); CREATININE 2.72 mg/dl (0.61-1.24); GLUCOSE 94 mg/dl (70-220); MAGNESIUM 1.8 mg/dl (1.7-2.5); PHOSPHORUS 2.9 mg/dl (2.5-4.9); POTASSIUM 3.7 mmol/L (3.5-5.1); SODIUM 137 mmol/L (135-144)
== END 2019-01-27 11:30 | disposition home or self-care (01) | DRG 291 ==
LOC: TEL 01-25 09:15 → E/R 22:30 → TEL 01-24 01:04
PROC: 5A1D70Z Performance of Urinary Filtration, Intermittent, Less than 6 Hours Per Day (ICD-10-PCS; principal; 2019-01-24)
PROC: 5A1D70Z Performance of Urinary Filtration, Intermittent, Less than 6 Hours Per Day (ICD-10-PCS; 2019-01-25)
PROC: 5A1D70Z Performance of Urinary Filtration, Intermittent, Less than 6 Hours Per Day (ICD-10-PCS; 2019-01-26)
DX: I13.2 Hypertensive heart and chronic kidney disease with heart failure and with stage 5 chronic kidney disease, or end stage renal disease (principal); L89.153 Pressure ulcer of sacral region, stage 3; N18.6 End stage renal disease; I50.43 Acute on chronic combined systolic (congestive) and diastolic (congestive) heart failure; I69.951 Hemiplegia and hemiparesis following unspecified cerebrovascular disease affecting right dominant side; E11.22 Type 2 diabetes mellitus with diabetic chronic kidney disease; I25.5 Ischemic cardiomyopathy; I25.10 Atherosclerotic heart disease of native coronary artery without angina pectoris; K21.9 Gastro-esophageal reflux disease without esophagitis; N40.0 Benign prostatic hyperplasia without lower urinary tract symptoms; E78.5 Hyperlipidemia, unspecified; R91.8 Other nonspecific abnormal finding of lung field; E11.40 Type 2 diabetes mellitus with diabetic neuropathy, unspecified; Z95.0 Presence of cardiac pacemaker; Z95.1 Presence of aortocoronary bypass graft; E11.21 Type 2 diabetes mellitus with diabetic nephropathy; I25.2 Old myocardial infarction; D63.1 Anemia in chronic kidney disease; R53.81 Other malaise
CPT/HCPCS: 36415; 71045; 71250; 80048; 80053; 82550; 82553; 82962; 83735; 83880; 84100; 84145; 84484; 85025; 87081; 87340; 90935; 93005; 97116; 97162; 97530; 99285-25; G0378

== ENCOUNTER 2019-02-09 18:37 | Inpatient (IN) | payer MEDICARE, OTHER ==
[2019-02-09 19:15] LABS: ADD MAN DIFF? NO
[2019-02-09 19:20] LABS: BASOPHIL # 0.1 10^3/ul (0.0-0.1); BASOPHILS % 1.1 % (0.0-2.0); EOSINOPHILS # 0.4 10^3/ul (0.0-0.5); EOSINOPHILS % 7.3 % (0.0-7.0); HEMATOCRIT 30.7 % (42.0-52.0); LYMPHOCYTES # 1.3 10^3/ul (0.8-2.9); LYMPHOCYTES % 23.5 % (15.0-51.0); MEAN CORPUSCULAR HEMOGLOBIN 31.6 pg (29.0-33.0); MEAN CORPUSCULAR HGB CONC 32.6 g/dl (32.0-37.0); MEAN CORPUSCULAR VOLUME 97.2 fl (82.0-101.0); MEAN PLATELET VOLUME 10.8 fl (7.4-10.4); MONOCYTE # 0.7 10^3/ul (0.3-0.9); NEUTROPHIL # 2.9 10^3/ul (1.6-7.5); NEUTROPHILS % 54.9 % (39.0-77.0); PLATELET COUNT 176 10^3/UL (140-415); RED BLOOD COUNT 3.16 10^6/ul (4.70-6.10); RED CELL DISTRIBUTION WIDTH 16.4 % (11.5-14.5)
[2019-02-09 19:20] LABS: WHITE BLOOD COUNT 5.3 10^3/ul (4.8-10.8)
[2019-02-09 19:38] LABS: INR 1.32; PARTIAL THROMBOPLASTIN TIME 30.1 Sec (23.0-35.0); PROTIME 16.5 Sec (11.9-14.9); PT RATIO 1.3
[2019-02-09 19:39] LABS: ALANINE AMINOTRANSFERASE 24 IU/L (13-69); ALBUMIN 3.6 g/dl (3.3-4.9); ALBUMIN/GLOBULIN RATIO 0.83; ALKALINE PHOSPHATASE 206 IU/L (42-121); ANION GAP 8 (5-13); ASPARTATE AMINO TRANSFERASE 15 IU/L (15-46); BILIRUBIN,INDIRECT 0.4 mg/dl (0-1.1); BILIRUBIN,TOTAL 0.4 mg/dl (0.2-1.3); BLOOD UREA NITROGEN 25 mg/dl (7-20); CARBON DIOXIDE 32 mmol/L (21-31); CHLORIDE 99 mmol/L (97-110); CREATINE KINASE 22 IU/L (23-200); CREATININE 2.76 mg/dl (0.61-1.24); GLUCOSE 144 mg/dl (70-220); POTASSIUM 4.3 mmol/L (3.5-5.1); SODIUM 139 mmol/L (135-144); TOTAL PROTEIN 7.9 g/dl (6.1-8.1)
[2019-02-09 19:52] LABS: CK INDEX 2.1; CK-MB 0.47 ng/ml (0.0-2.4); TROPONIN-I < 0.012 ng/ml (0.000-0.120)
[2019-02-09 20:05] LABS: B-TYPE NATRIURETIC PEPTIDE 37300 PG/ML (0-450)
[2019-02-09] MEDS: IPRATROPIUM (NEB) 0.5 MG/2.5 ML AMP INH (20:06)
[2019-02-09] MEDS: ALBUTEROL 0.5% (NEB) 2.5 MG/0.5 ML AMP INH (20:06)
[2019-02-10] MEDS ORDERED: ONDANSETRON 4 MG INJ IV
[2019-02-10] MEDS: IPRATROPIUM (NEB) 0.5 MG/2.5 ML AMP NEB (00:04)
[2019-02-10] MEDS: ALBUTEROL 0.5% (NEB) 2.5 MG/0.5 ML AMP NEB (00:04)
[2019-02-10] MEDS ORDERED: ACETAMINOPHEN 325 MG TAB PO ×2 (03:00)
[2019-02-10] MEDS ORDERED: GLUCOSE GEL 15 GRAM TUBE PO ×2 (03:30)
[2019-02-10] MEDS ORDERED: GLUCOSE GEL 15 GRAM TUBE BUCCAL (03:30)
[2019-02-10] MEDS ORDERED: DEXTROSE 50% 50 ML SYRINGE IV ×2 (03:30)
[2019-02-10] MEDS ORDERED: GLUCAGON 1 MG INJ IM (03:30)
[2019-02-10] MEDS: ACCU-CHEK XX ×4 (07:00→21:00)
[2019-02-10] MEDS: INSULIN ASPART [NOVOLOG] 3 ML PEN SC ×4 (07:39→20:16)
[2019-02-10] MEDS: REPAGLINIDE 1 MG TAB PO ×3 (07:39→16:49)
[2019-02-10] MEDS: FAMOTIDINE 20 MG TAB PO (08:12)
[2019-02-10] MEDS: ASPIRIN 81 MG TAB PO (08:12)
[2019-02-10] MEDS: AMLODIPINE 2.5 MG TAB PO (08:12)
[2019-02-10] MEDS: TAMSULOSIN (SR) 0.4 MG CAP PO (20:12)
[2019-02-10] MEDS: ATORVASTATIN 80 MG TAB PO (20:12)
[2019-02-10] MEDS: GABAPENTIN 100 MG CAP PO (20:12)
[2019-02-10] MEDS: LATANOPROST 0.005% 2.5 ML OPH RIGHT EYE (20:55)
[2019-02-11] MEDS: ACCU-CHEK XX ×5 (02:00→21:44)
[2019-02-11 06:11] LABS: ADD MAN DIFF? NO
[2019-02-11 06:15] LABS: BASOPHIL # 0.1 10^3/ul (0.0-0.1); BASOPHILS % 1.2 % (0.0-2.0); EOSINOPHILS # 0.7 10^3/ul (0.0-0.5); EOSINOPHILS % 11.7 % (0.0-7.0); HEMATOCRIT 32.3 % (42.0-52.0); HEMOGLOBIN 10.5 g/dl (14.0-18.0); LYMPHOCYTES # 1.4 10^3/ul (0.8-2.9); LYMPHOCYTES % 24.6 % (15.0-51.0); MEAN CORPUSCULAR HGB CONC 32.5 g/dl (32.0-37.0); MEAN CORPUSCULAR VOLUME 95.3 fl (82.0-101.0); MEAN PLATELET VOLUME 11.1 fl (7.4-10.4); MONOCYTE # 0.8 10^3/ul (0.3-0.9); MONOCYTES % 14.4 % (0.0-11.0); NEUTROPHIL # 2.7 10^3/ul (1.6-7.5); NEUTROPHILS % 47.7 % (39.0-77.0); PLATELET COUNT 201 10^3/UL (140-415); RED BLOOD COUNT 3.39 10^6/ul (4.70-6.10); RED CELL DISTRIBUTION WIDTH 16.4 % (11.5-14.5)
[2019-02-11 06:15] LABS: WHITE BLOOD COUNT 5.6 10^3/ul (4.8-10.8)
[2019-02-11 06:43] LABS: ANION GAP 12 (5-13); BLOOD UREA NITROGEN 37 mg/dl (7-20); CALCIUM 9.3 mg/dl (8.4-10.2); CARBON DIOXIDE 30 mmol/L (21-31); CHLORIDE 100 mmol/L (97-110); CREATININE 3.99 mg/dl (0.61-1.24); GLUCOSE 81 mg/dl (70-220); PHOSPHORUS 3.5 mg/dl (2.5-4.9); POTASSIUM 4.3 mmol/L (3.5-5.1); SODIUM 142 mmol/L (135-144)
[2019-02-11] MEDS: INSULIN ASPART [NOVOLOG] 3 ML PEN SC ×4 (07:47→20:57)
[2019-02-11] MEDS: FAMOTIDINE 20 MG TAB PO (07:48)
[2019-02-11] MEDS: ASPIRIN 81 MG TAB PO (07:48)
[2019-02-11] MEDS: REPAGLINIDE 1 MG TAB PO ×3 (07:48→17:00)
[2019-02-11] MEDS: GABAPENTIN 100 MG CAP PO (20:52)
[2019-02-11] MEDS: ATORVASTATIN 80 MG TAB PO (20:52)
[2019-02-11] MEDS: TAMSULOSIN (SR) 0.4 MG CAP PO (20:52)
[2019-02-11] MEDS: LATANOPROST 0.005% 2.5 ML OPH RIGHT EYE (20:52)
[2019-02-11] MEDS: BALSAM PERU/CASTOR OIL 60 GM TUBE TOP (21:44)
[2019-02-12] MEDS: ACCU-CHEK XX ×3 (02:21→11:30)
[2019-02-12] MEDS: INSULIN ASPART [NOVOLOG] 3 ML PEN SC ×2 (08:00→12:00)
[2019-02-12] MEDS: REPAGLINIDE 1 MG TAB PO ×2 (08:11→12:52)
[2019-02-12] MEDS: ASPIRIN 81 MG TAB PO (08:11)
[2019-02-12] MEDS: BALSAM PERU/CASTOR OIL 60 GM TUBE TOP (08:11)
[2019-02-12] MEDS: FAMOTIDINE 20 MG TAB PO (08:11)
== END 2019-02-12 14:40 | disposition home or self-care (01) | DRG 291 ==
LOC: 6WM 02-10 01:02 → E/R 18:37
PROC: 5A1D70Z Performance of Urinary Filtration, Intermittent, Less than 6 Hours Per Day (ICD-10-PCS; principal; 2019-02-10)
DX: I13.2 Hypertensive heart and chronic kidney disease with heart failure and with stage 5 chronic kidney disease, or end stage renal disease (principal); N18.6 End stage renal disease; J81.0 Acute pulmonary edema; I50.32 Chronic diastolic (congestive) heart failure; I69.959 Hemiplegia and hemiparesis following unspecified cerebrovascular disease affecting unspecified side; E11.22 Type 2 diabetes mellitus with diabetic chronic kidney disease; Z99.2 Dependence on renal dialysis; Z95.810 Presence of automatic (implantable) cardiac defibrillator; N40.0 Benign prostatic hyperplasia without lower urinary tract symptoms; Z95.1 Presence of aortocoronary bypass graft; E78.5 Hyperlipidemia, unspecified; I69.920 Aphasia following unspecified cerebrovascular disease
CPT/HCPCS: 71045; 80048; 80053; 82550; 82553; 82962; 83605; 83735; 83880; 84100; 84484; 85025; 85610; 85730; 87040-91; 87081; 90935; 93005; 94644; 94645; 99285-25; G0378